=== PATIENT | female | born 1970 | race Caucasian/White ===

== ENCOUNTER → 2018-03-10 14:27 | Outpatient (CLI) | payer BC, SELFPAY ==
[2016-07-31 15:27] VITALS: BMI 34.2
--- NOTE | 2018-03-10 14:35 | RAD_ITS ---
STUDY: X-RAY - PELVIS REASON FOR EXAM: Female, 48 years old. Pelvic pain left greater than right. TECHNIQUE: One view of the pelvis was obtained. COMPARISON: None. FINDINGS: There is a non-specific bowel gas pattern. Normal visualized soft tissue structures. Normal bilateral iliac wings, sacroiliac joints and visualized sacrum. Normal visualized bilateral superior and inferior pubic rami. Normal pubic symphysis. Normal ischial tuberosities. Normal visualized right femoral head. Normal right acetabulum. Normal right hip joint. Normal visualized left femoral head. Normal left acetabulum. Normal left hip joint. RAD/Pelvis 1 or 2 Views IMPRESSION: Normal x-ray examination of the pelvis. Electronically Signed: Joe Cabrera MD at 7:33 EST , Service support ,
[2018-03-10 16:12] LABS: Absolute Lymphocyte Count 2.54 X10^3/ul (0.83-4.51); Absolute Neutrophil Count 4.8 X10^3/uL (2.0-7.7); Basophil# 0.05 X10^3/uL; Basophil% 0.6 % (0-1); Eosinophil# 0.25 X10^3/uL; Eosinophils% 3.1 % (0-5); Hematocrit 41.9 % (37-47); Hemoglobin 13.9 g/dl (12.0-15.0); Lymphocyte # 2.54 X10^3/ul (4.0); Lymphocyte % 31.1 % (19-41); Mean Corp Hgb Conc 33.2 g/gl (32-36); Mean Corpuscular Hgb 30.7 pg (27.0-32.0); Mean Corpuscular Volume 92.5 fL (81-99); Mean Platelet Vol. 10.1 fl (6.2-12.0); Monocyte# 0.54 X10^3/uL; Monocyte% 6.6 % (0-10); Neutrophil # 4.79 X10^3/uL (2.7-7.7); Neutrophil % 58.5 % (47-70); Platelet Count 346 K/mm3 (150-450); RBC Distribution Width SD 43.3 fl (35.1-43.9); Red Blood Count 4.53 M/mm3 (4.2-5.4); White Blood Count 8.2 K/mm3 (4.4-11.0)
[2018-03-10 16:16] LABS: POSITIVE COUNT NO; POSITIVE DIFFERENTIAL NO; POSITIVE MORPHOLOGY NO
[2018-03-10 16:34] LABS: ALB/GLOB Ratio 1.1 RATIO (0.9-2.4); AST(SGOT) 26 U/L (15-37); Alanine Aminotransfer ALT/SGPT 33 U/L (13-56); Albumin, Serum 4.1 g/dL (3.2-5.0); Alkaline Phosphatase 80 U/L (45-117); Anion Gap 9 (5-15); BUN 7 mg/dL (7-18); BUN/Creat Ratio 8.6 RATIO (10-20); Calcium,Total 8.7 mg/dL (8.5-10.1); Chloride 105 mmol/L (98-107); Creatinine, Serum 0.82 mg/dL (0.55-1.02); EST Glomerular Filtration Rate 80 mL/min (>60); Est Glom Filt Rate - Afr Amer 97 mL/min (>60); Globulin 3.8 g/dL (2.2-4.2); Glucose 88 mg/dL (74-106); Potassium 3.6 mmol/L (3.5-5.1); Protein, Total 7.9 g/dL (6.4-8.2); Rheumatoid Factor < 10.0 IU/mL (<15); Sodium Level 140 mmol/L (136-145)
[2018-03-13 09:43] LABS: ANTINUCLEAR ANTIBODIES DIRECT Negative (Negative)
[2018-03-17 14:44] LABS: CCP IgG Antibodies 33 units (0-19); HEPATITIS B SURFACE AG Negative (Negative); HLA B27 Negative (.); Hep B Surface Antibodies Non Reactive (.); Hep C Antibodies 0.2 s/co ratio (0.0-0.9)
--- OUTSIDE RECORDS SUMMARY | 2018-04-22 12:23 | XMS RPT_ITS ---
:1970 Author Organization OHIP Care Team Providers Name Role Phone MARIAM WATERS Attending Unavailable MARIAM WATERS Attending Unavailable MARIAM WATERS Referring Unavailable Marimar Aguirre Attending Unavailable Marimar Aguirre Referring Unavailable Mariam Waters Primary Care Unavailable PROBLEMS PROBLEMS DATE TYPE CONDITION / CODE ATTENDING STATUS SOURCE 03/10/2018 Unknown L40.59 - Other [place]anki, Marimar Active [facility] arthropathy / Hospital L40.59(ICD-10) Repository 03/10/2018 Unknown M79.7 - Vellanki, Marimar Active [facility] Fibromyalgia / Community M79.7(ICD-10) Hospital Repository 03/10/2018 Unknown L40.8 - Other Vellanki, Marimar Active [facility] psoriasis / Community L40.8(ICD-10) Hospital Repository 03/10/2018 Unknown E03.9 - Vellanki, Marimar Active [facility] Hypothyroidism, Community unspecified / Hospital E03.9(ICD-10) Repository 03/10/2018 Unknown J45.909 - Vellanki, Marimar Active [facility] Unspecified asthma, Community uncomplicated / Hospital J45.909(ICD-10) Repository 03/10/2018 Unknown K21.9 - Vellanki, Marimar Active [facility] Gastro-esophageal [facility] reflux disease Hospital without esophagitis Repository / K21.9(ICD-10) 02/05/2018 Active Pain in right elbow NA Active [facility] / M25.521(ICD-10) [facility] [place] Repository PROCEDURES PROCEDURES No Procedure Records FoundRESULTS RESULTS CBC W/DIFF, AUTOMATED Collected: 03/10/2018 Status: F Source: [place] 2:51 PM [facility] REPOSITORY TYPE CODE TESTS RESULT OUT OF RANGE REFERENCE UNITS LAB L100.1000 4.4-11.0 K/mm3 Normal WBC 8.2 LAB L100.1200 4.2-5.4 M/mm3 Normal RBC 4.53 LAB L100.1300 12.0-15.0 g/dl Normal HGB 13.9 LAB L100.1400 37-47 % Normal HCT 41.9 LAB L100.1500 81-99 fL Normal MCV 92.5 LAB L100.1600 27.0-32.0 pg Normal MCH 30.7 LAB L100.1700 32-36 g/gl Normal MCHC 33.2 LAB L100.1810 11.6-14.6 % Normal RDW CV 13.0 LAB L100.1820 35.1-43.9 fl Normal RDW SD 43.3 LAB L100.1900 150-450 K/mm3 Normal PLT 346 LAB L100.2000 6.2-12.0 fl Normal MPV 10.1 LAB L100.2100 47-70 % Normal NEUT% 58.5 LAB L100.2200 19-41 % Normal LY% 31.1 LAB L100.2300 0-10 % Normal MONO% 6.6 LAB L100.2400 0-5 % Normal EO% 3.1 LAB L100.2500 0-1 % Normal BASO% 0.6 LAB L100.2550 0.0-0.9 % Normal IM GRAN % 0.100 Result Comment: IG% - Immature Granulocytes (promyelocytes, myelocytes and metamyelocytes) > 1% indicates that a LEFT SHIFT is Present. LAB L100.2620 2.0-7.7 X10 3/uL Normal Absolute Neut 4.8 LAB L100.2720 0.83-4.51 X10 3/ul Normal Absolute Lymph 2.54 Performed By: #### L100.0100 #### [facility] [address] [place], [place], [id number] COMPREHENSIVE METABOLIC Collected: 03/10/2018 Status: F Source: [facility] 2:51 PM [facility] REPOSITORY TYPE CODE TESTS RESULT OUT OF RANGE REFERENCE UNITS LAB L501.0100 74-106 mg/dL Normal GLU 88 Result Comment: Please note revised GLUCOSE reference range effective 2017. LAB L501.1000 7-18 mg/dL Normal BUN 7 LAB L501.1100 0.55-1.02 mg/dL Normal CREAT,SERUM 0.82 Result Comment: The validity of the calculated GFR AND GFRAA in patients over 70 years has not been determined. Clinical correlation is essential. LAB L501.1110 >60 mL/min Normal EST GFR 80 Result Comment: Non- GFR Calc LAB L501.1115 >60 mL/min Normal EST GFR - AA 97 Result Comment: GFR Calc LAB L501.1300 10-20 RATIO Low BUN/CRE 8.6 LAB L501.1500 6.4-8.2 g/dL Normal T PROT 7.9 LAB L501.1800 3.2-5.0 g/dL Normal ALB 4.1 LAB L501.1950 2.2-4.2 g/dL Normal GLOB 3.8 LAB L501.2000 0.9-2.4 RATIO Normal A/G 1.1 LAB L501.2200 8.5-10.1 mg/dL Normal CA 8.7 LAB L501.4100 15-37 U/L Normal AST 26 LAB L501.4305 45-117 U/L Normal ALK P 80 LAB L501.4405 13-56 U/L Normal ALT 33 LAB L501.4600 0.20-1.00 mg/dL Normal T BILI 0.30 LAB L501.5300 136-145 mmol/L Normal NA 140 LAB L501.5600 3.5-5.1 mmol/L Normal K 3.6 LAB L501.5900 98-107 mmol/L Normal CL 105 LAB L501.6100 21.0-32.0 mmol/L Normal CO2 26.0 LAB L501.6200 5-15 Normal GAP 9 Performed By: #### L500.4050, L505.7010 #### [facility] [address] [place], [address] RHEUMATOID FACTOR Collected: 03/10/2018 Status: F Source: [place] 2:51 PM [facility] REPOSITORY TYPE CODE TESTS RESULT OUT OF RANGE REFERENCE UNITS LAB L505.7010 <15 IU/mL Normal RHEUMATOID FAC < 10.0 Performed By: #### L500.4050, L505.7010 #### [facility] [address] [place], [address] ANTINUCLEAR ANTIBODIES Collected: 03/10/2018 Status: F Source: [facility] DIRECT 2:51 PM [facility] REPOSITORY TYPE CODE TESTS RESULT OUT OF RANGE REFERENCE UNITS LAB L3100.5475 Negative Normal Negative ANALI-DIRECT Result Comment: Performed at: - [facility] [id number] Refuse Laborer: Tomer Preston PhD, Phone: [phone] Performed By: #### L3100.5475 #### [facility] (refer to report for specific site) refer to report for address and phone number HEPATITIS B SURFACE Collected: 03/10/2018 Status: F Source: [place] AG 2:51 PM [facility] REPOSITORY TYPE CODE TESTS RESULT OUT OF RANGE REFERENCE UNITS LAB L3100.0400 Negative Normal HB Negative SURF AG Result Comment: Performed at: - [facility] [id number] Refuse Laborer: Tomer Preston PhD, Phone: [phone] Performed at: - [facility] [id number] Refuse Laborer: Leopoldo To PhD, Phone: [phone] Performed at: - [facility] [id number] Refuse Laborer: Kev Will MD, Phone: [phone] Performed By: #### L3100.0390, L3100.0528, L3100.0625, L3410.1400, L4600.0100 #### [facility] (refer to report for specific site) refer to report for address and phone number HEP B SURFACE Collected: 03/10/2018 Status: F Source: [place] ANTIBODIES 2:51 PM [facility] REPOSITORY TYPE CODE TESTS RESULT OUT OF RANGE REFERENCE UNITS LAB L3100.0528 . Normal Hep B Non Reactive [place] AB Result Comment: Non Reactive: Inconsistent with immunity, less than 10 mIU/mL Reactive: Consistent with immunity, greater than 9.9 mIU/mL Performed By: #### L3100.0390, L3100.0528, L3100.0625, L3410.1400, L4600.0100 #### [facility] (refer to report for specific site) refer to report for address and phone number HEPATITIS C ANTIBODIES Collected: 03/10/2018 Status: F Source: [place] 2:51 PM [facility] REPOSITORY TYPE CODE TESTS RESULT OUT OF RANGE REFERENCE UNITS LAB L3100.0650 0.0-0.9 s/co ratio Normal HEP C AB 0.2 Result Comment: Negative: < 0.8 Indeterminate: 0.8 - 0.9 Positive: > 0.9 The CDC recommends that a positive HCV antibody result be followed up with a HCV Nucleic Acid Amplification test (177591). Performed By: #### L3100.0390, L3100.0528, L3100.0625, L3410.1400, L4600.0100 #### [facility] (refer to report for specific site) refer to report for address and phone number HLA B27 Collected: 03/10/2018 Status: F Source: [place] 2:51 PM [facility] REPOSITORY TYPE CODE TESTS RESULT OUT OF RANGE REFERENCE UNITS LAB L3410.1500 . Normal HLA Negative B27 Result Comment: HLA-B*27 Negative B27 allele interpretation for all loci based on IMGT/HLA database version 3.31.0 This test was developed and its performance characteristics determined by [facility]. It has not been cleared or approved by the Food and Drug Administration. [facility] CLIA ID Number [id number] This test was performed using PCR (Polymerase Chain Reaction)/SSOP (Sequence Specific Oligonucleotide Probes) technique. SBT (Sequence Based Typing) and/or SSP (Sequence Specific Primers) may be used as supplemental methods when necessary. Please contact [facility] Customer Service at if you have any questions. Director of [facility] Dr Leopoldo To, PhD Performed By: #### L3100.0390, L3100.0528, L3100.0625, L3410.1400, L4600.0100 #### [facility] (refer to report for specific site) refer to report for address and phone number CCP IGG ANTIBODIES Collected: 03/10/2018 Status: F Source: [place] 2:51 PM [facility] REPOSITORY TYPE CODE TESTS RESULT OUT OF REFERENCE UNITS RANGE LAB L4600.0100 0-19 units High ANTI-CCP 33 [id number] Result Comment: Negative <20 Weak positive 20 - 39 Moderate positive 40 - 59 Strong positive >59 Performed By: #### L3100.0390, L3100.0528, L3100.0625, L3410.1400, L4600.0100 #### [facility] (refer to report for specific site) refer to report for address and phone number PELVIS 1 OR 2 VIEWS Observed: 03/10/2018 Status: F Source: [place] 2:35 PM [facility] REPOSITORY [facility] Imaging Services [address] [place] [address] Pelvis 1 or 2 Views MR#: [id number] Acct: [id number] Name: NINI AMAYA Rep #: [id number] : 1970 F 48 From: Joe Cabrera PCP: Mariam Waters MD Status: REG CLI Study: Pelvis 1 or 2 Views Date of Exam: 03/10/18 Exam# [id number] Ordering Dr: Marimar Aguirre MD STUDY: X-RAY - PELVIS REASON FOR EXAM: Female, 48 years old. Pelvic pain left greater than right. TECHNIQUE: One view of the pelvis was obtained. COMPARISON: None. FINDINGS: There is a non-specific bowel gas pattern. Normal visualized soft tissue structures. Normal bilateral iliac wings, sacroiliac joints and visualized sacrum. Normal visualized bilateral superior and inferior pubic rami. Normal pubic symphysis. Normal ischial tuberosities. Normal visualized right femoral head. Normal right acetabulum. Normal right hip joint. Normal visualized left femoral head. Normal left acetabulum. Normal left hip joint. RAD/Pelvis 1 or 2 Views IMPRESSION: Normal x-ray examination of the pelvis. Electronically Signed: Joe Cabrera MD at 7:33 EST , Service support , CC: Marimar Aguirre MD; Mariam Waters MD Highway Maintenance Supervisor: Signed XR ELBOW 2V AP/LAT Observed: 02/05/2018 Status: F Source: [facility] 10:29 AM [facility] REPOSITORY * * *Final Report* * * DATE OF EXAM: Feb 05 2018 10:29AM WOX [id number] - XR ELBOW 2V AP/LAT RT / PROCEDURE REASON: Right elbow pain * * * * Physician Interpretation * * * * HISTORY: 47-year-old woman with right elbow pain RESULT: AP and lateral views of the right elbow were obtained. There is no evidence of acute displaced fracture, dislocation, or significant joint space narrowing. No joint effusion is seen. IMPRESSION: No acute findings Highway Maintenance Supervisor: PSCAlexa Transcribe Date/Time: Feb 05 2018 8:35P Dictated by : NURYS OATES MD This examination was interpreted and the report reviewed and electronically signed by: NURYS OATES MD on Feb 05 2018 8:36PM EST [id number] Observed: 02/05/2018 Status: COMPLETED Source: [place] 10:27 AM [facility] REPOSITORY HNO ID: [id number] Author: Queenie Diaz Service: (none) Author Type: (none) Type: Progress Notes Filed: 02/05/2018 10:31 AM Note Text: Radiology Service Progress Note PATIENT NAME: Nini Amaya DATE OF SERVICE: February 05, 2018 TIME: 10:27 AM PATIENT IDENTITY VERIFICATION COMPLETED USING TWO (2) METHODS: Patient confirmed name verbally and Date of . PATIENT GENDER DATA: Female. status: : No status: NO. PATIENT RELEVANT IMPLANT DATA REVIEWED: Not Applicable RADIOLOGY DEPARTMENT: General X-ray: Exam(s) Completed: Upper Extremity X-Ray(s): Elbow, right : PERIPHERAL IV DATA: Not applicable SIGNED BY: Queenie Diaz February 05, 2018 10:27 AM PROGRESS Observed: 02/05/2018 Status: COMPLETED Source: [place] 9:26 AM [facility] REPOSITORY HNO ID: [id number] Author: Mariam Waters Service: (none) Author Type: Physician Type: Progress Notes Filed: 02/05/2018 9:52 AM Note Text: Patient presents with: right arm pain: arthritis Sinus Problem HPI: Patient presents today for office visit for follow up. Nursing Notes: Radha Pillai BO 02/05/2018 9:22 AM Signed ENT: Patient complains of sinus pressure. Duration: 2 weeks Fever: Yes on and off low grade Headache: Yes. Sore throat: Yes. Ear pain: Yes. Nasal drainage: Yes. Cough: Yes. Shortness of breath: Yes. Nausea: Yes. Burning that is painful mostly in morning and evening. Vomiting: Yes. Diarrhea: Yes. Previous treatment: Yes. Sofia [place] plus. Advil sinus/cold, airbornne Arthritis pain in right arm has been flared up for 6 months. Is wanting to get back in to see Dr Aguirre instead of seeing Dr Altamirano but not getting calls back from their office thinking that needs referral from us. Wanting to maybe increase her gabapentin to 400mg? HYPOTHYROID:overdue for labs. VIT D:over due for labs. ENT: had blown out her ear drum in the past. Waking up with drainage out of the left ear since last week. Her right ear is slightly tender. GASTROENTEROLOGY issues are improving. Diarrhea seems to be improving. No bloody or black stools. RHEUM wants to get back into see Dr. Aguirre Having increased pain over right elbow. Bothers her to arm and to her hand. Using elbow brace. MEDICATIONS: Current Outpatient Prescriptions: folic acid 1 mg tablet Take 1 tablet by mouth once daily. levothyroxine (SYNTHROID) 88 mcg tablet Take 1 tablet by mouth once daily. albuterol HFA (VENTOLIN HFA) 90 mcg/actuation inhaler Inhale 2 Puffs as instructed every 4 hours as needed. meclizine (ANTIVERT) 25 mg tab TAKE 1 TABLET BY MOUTH THREE TIMES DAILY NEEDED gabapentin (NEURONTIN) 300 mg capsule TAKE 1 CAPSULE BY MOUTH AT BEDTIME ergocalciferol, vitamin D2, (DRISDOL) 50,000 unit capsule Take 1 capsule by mouth twice a week. ranitidine (ZANTAC) 150 mg tablet Take 1 tablet by mouth twice daily. mometasone (ELOCON) 0.1 % cream Apply thin layer twice a day to rash until clear or up to two weeks consecutively; 1 week off before restarting cetirizine (ZYRTEC) 10 mg tablet Take 1 tablet by mouth once daily. Ascorbic Acid (VITAMIN C) 1,000 mg tablet Take 1,000 mg by mouth once daily. albuterol (PROVENTIL) 2.5 mg /3 mL (0.083 %) nebulizer solution Use 3 mL via nebulizer three times daily as needed. OVER 5-15 MINUTES. FOR WHEEZING AND SHORTNESS OF BREATH. EPINEPHrine (EPIPEN) 0.3 mg/0.3 mL (1:1,000) atIn 0.3 mL as directed. amitriptyline (ELAVIL) 10 mg tablet Take 1 tablet by mouth at bedtime as needed. Wlgunoxekmvkvve-Qvqahaeel-LX (BROMFED DM) 2-30-10 mg/5 mL syrup Take 5 mL by mouth four times daily as needed. ibuprofen (MOTRIN) 800 mg tablet Take 1 tablet by mouth every 8 hours as needed for Pain. FOR PAIN. montelukast (SINGULAIR) 10 mg tablet Take 1 tablet by mouth daily at bedtime. (Patient not taking: Reported on 02/05/2018 ) VITAMIN B COMPLEX (B COMPLEX ORAL) Take by mouth. vitamin e 1,000 unit capsule Take 1,000 Units by mouth once daily. niacin (NIACIN) 500 mg tablet Take 500 mg by mouth daily with breakfast. Magnesium Oxide 500 mg cap Take by mouth. No current facility-administered medications for this visit. ALLERGIES: ALLERGIES Allergen Reactions - Aleve [Naproxen Sod* Hives, Swelling - Basil Swelling - Bees Hives - Trazodone Other: See Comments episodes of blindness - Amoxicillin Other: See Comments yeast infection - Morphine Vomiting - Percocet [Oxycodone* Other: See Comments Headaches, strange dreams - Prozac [Fluoxetine * - Septra [Sulfamethox* Hives PAST MEDICAL HISTORY Diagnosis Date - Allergic rhinitis, cause unspecified - Chronic depressive personality disorder - Diaphragmatic hernia without mention of obstruction or gangrene - Esophageal reflux - Esophagitis, unspecified - Hypothyroidism 08/15/2009 - Irritable bowel syndrome - LUMB DISC DIS W MYELOPAT 03/04/2007 - Lumbago 02/12/2007 - Marijuana use found on drug screen - Psoriatic arthritis (HCC) - Rheumatoid arthritis(714.0) Sees Dr. Altamirano at [facility] - Tear of medial cartilage or meniscus of knee, current 06/27/2010 - Unspecified asthma(493.90) PAST SURGICAL HISTORY Procedure Laterality Date - COLONOSCOP W/ OR W/O [facility] SPEC Colonoscopy - EGD W/O OR W/BRUSH/WASH 10/17/2005 EGD - HYSTERECTOMY HX 07/2016 with RSO - KNEE SCOPE,DIAGNOSTIC 11/07/2010 Arthroscopy, knee right - LIGATE FALLOPIAN TUBE 01/18/04 Tubal ligation - PAST SURGICAL HISTORY OF removal of sinus mass-benign FAMILY HISTORY Problem Relation Age of Onset - Diabetes Mother - Hypertension Mother - other (reflux) Mother - other (Rheumatoid Arthritis) Mother - other (Fibromyalgia) Mother - other (Osteo Arthritis) Mother - Hypertension Maternal Grandfather - other (LUPUS) Maternal Grandmother - other (LUPUS) Maternal Aunt - other (lung cancer) Maternal Aunt - other (brain cancer) Maternal Aunt Social History Marital status: Spouse name: Years of education: Number of children: 3 Occupational History Occupation Employer Comment patient ar shilpa* [employer]* Social History Main Topics Smoking status: Current Every Day Smoker Packs/day: 1.00 Years: 15.00 Types: Cigarettes Smokeless tobacco: Never Used Alcohol use: Yes Comment: RARELY Drug use: No Comment: COFFEE Sexual activity: Yes Partners with: Male control/protection: Tubal Ligation Reviewed current medications, allergies, past medical history, surgical history, family history and social history today. REVIEW OF SYSTEMS RESPIRATORY: Negative for cough, hemoptysis, wheezing, COPD, dyspnea or shortness of breath CARDIOVASCULAR: Negative for chest pain, leg swelling, hypertension, CHF or palpitations All other reviewed and negative other than HPI. HEALTH MAINTENANCE: Reviewed health maintenance issues today and recommended the following in detail. MAMMOGRAM due on 02/28/2017 PAP EVERY 5 YEARS -non cancerous fibroids INFLUENZA-recommended. VITALS: BP 122/64 Pulse 88 Temp 36.9 ?C (98.4 ?F) (Tympanic) Wt 90.7 kg (200 lb) LMP 05/21/2016 BMI 34.87 kg/m? Last 4 Encounter Wt Readings: Date: Wt: 02/05/2018 90.7 kg (200 lb) 05/29/2017 91.2 kg (201 lb) 05/24/2017 91.2 kg (201 lb) 08/13/2016 90.8 kg (200 lb 3.2 oz) PHYSICAL EXAMINATION: General appearance: Well appearing, alert, in no acute distress, well-hydrated, well nourished. Skin: Skin color, texture, turgor normal, no suspicious rashes or lesions Head: Normocephalic, no masses, lesions, tenderness or abnormalities Eyes: Anicteric sclera. Pupils are equally round and reactive to light. Extraocular movements are intact. Ears: left ear showed red ear canal. Tm is clear. Nose/Sinuses: Nares normal, septum midline, mucosa normal, no drainage or sinus tenderness Oropharynx: Lips, mucosa, and tongue normal, teeth and gums normal, oropharynx normal Neck: Supple, no adenopathy; thyroid symmetric, normal size, no bruits Lungs: Lungs clear to auscultation. No wheezing, rhonchi, rales Heart: RRR without murmur, gallop, or rubs. No ectopy Abdomen: Normal abdominal exam, Abdomen soft, non-tender. Bowel sounds normal. No masses, organomegaly Extremities: No deformities, edema, skin discoloration, clubbing or cyanosis. Good capillary refill. Tender over left elbow and lateral epicondyle. No redness or warmth. No edema. ASSESSMENT/PLAN: 1. Psoriatic arthritis (HCC) - ICD9: 696.0, ICD10: L40.50 (primary diagnosis) - see rheum. Check labs. - CONSULT TO RHEUM/IMMUN DISEASE - SED MARCELO BERNAL - C-REACTIVE PROTEIN (CRP) - GABAPENTIN 400 MG CAPSULE 2. Impaired fasting glucose - ICD9: 790.21, ICD10: R73.01 - follow labs. - COMP METABOLIC PANEL - LIPID PANEL BASIC - HGB A1C 3. Acquired hypothyroidism - ICD9: 244.9, ICD10: E03.9 - Instructed patient on importance of taking on an empty stomach either first thing in the morning or at bedtime. - TSH BLD 4. Vitamin D deficiency - ICD9: 268.9, ICD10: E55.9 - check albs. - VITAMIN D 25 HYDROXY 5. Uncomplicated asthma, unspecified asthma severity, unspecified whether persistent - ICD9: 493.90, ICD10: J45.909 - follow labs 6. Visit for screening mammogram - ICD9: V76.12, ICD10: Z12.31 - Encouraged monthly BSE - Follow up for annual exam in one year. - FRANCISCO JAVIER SCREENING 7. Tobacco abuse - ICD9: 305.1, ICD10: Z72.0 - Cessation encouraged. - Physiologic and physical aspects of tobacco addiction as well as strategies for quitting were discussed. - Counseling was given focusing on the harmful effects of this addiction especially given the patient's medical condition(s) which will be worsened because of the chemicals in tobacco. 8. Right elbow pain - ICD9: 719.42, ICD10: M25.521 - ice prn - XR ELBOW GENERAL 2V AP/LAT RT 9. Bacterial sinusitis - ICD9: 473.9, 041.9, ICD10: J32.9, B96.89 - Supportive care with plenty of fluids, rest, and analgesia prn. - Follow up in one week if symptoms persist or worsen. - DOXYCYCLINE MONOHYDRATE 100 MG CAPSULE 10. Acute otitis externa of left ear, unspecified type - ICD9: 380.10, ICD10: H60.502 - Call if symptoms worsen at all or if not better in one to two weeks - UMACHCAF-XDDMILCSB-EWNBWEULY 3.5 MG-10,000 UNIT/ML-1 % EAR DROPS,SUSP Mariam Waters MD CNOV Observed: 02/05/2018 Status: COMPLETED Source: [place] 9:00 AM [facility] REPOSITORY Office Visit (FAMPWS) NINI AMAYA ([id number]) 1970 F Date Time Provider Department 02/05/18 9:00 AM [facility] your visit today, we recorded the following information about you: Temperature Pulse Blood pressure Weight 98.4 degrees 88/minute 122/64 90.7 kg Radhacarol Serranonidhichicho BO 02/05/2018 9:22 AM Signed ENT: Patient complains of sinus pressure. Duration: 2 weeks Fever: Yes on and off low grade Headache: Yes. Sore throat: Yes. Ear pain: Yes. Nasal drainage: Yes. Cough: Yes. Shortness of breath: Yes. Nausea: Yes. Burning that is painful mostly in morning and evening. Vomiting: Yes. Diarrhea: Yes. Previous treatment: Yes. Sofia [place] plus. Advil sinus/cold, airbornne Arthritis pain in right arm has been flared up for 6 months. Is wanting to get back in to see Dr Aguirre instead of seeing Dr Altamirano but not getting calls back from their office thinking that needs referral from us. Wanting to maybe increase her gabapentin to 400mg? Mariam Waters MD 02/05/2018 9:52 AM Signed Patient presents with: right arm pain: arthritis Sinus Problem HPI: Patient presents today for office visit for follow up. Nursing Notes: Radha Pillai BO 02/05/2018 9:22 AM Signed ENT: Patient complains of sinus pressure. Duration: 2 weeks Fever: Yes on and off low grade Headache: Yes. Sore throat: Yes. Ear pain: Yes. Nasal drainage: Yes. Cough: Yes. Shortness of breath: Yes. Nausea: Yes. Burning that is painful mostly in morning and evening. Vomiting: Yes. Diarrhea: Yes. Previous treatment: Yes. Sofia [place] plus. Advil sinus/cold, airbornne Arthritis pain in right arm has been flared up for 6 months. Is wanting to get back in to see Dr Aguirre instead of seeing Dr Altamirano but not getting calls back from their office thinking that needs referral from us. Wanting to maybe increase her gabapentin to 400mg? HYPOTHYROID:overdue for labs. VIT D:over due for labs. ENT: had blown out her ear drum in the past. Waking up with drainage out of the left ear since last week. Her right ear is slightly tender. GASTROENTEROLOGY issues are improving. Diarrhea seems to be improving. No bloody or black stools. RHEUM wants to get back into see Dr. Aguirre Having increased pain over right elbow. Bothers her to arm and to her hand. Using elbow brace. MEDICATIONS: Current Outpatient Prescriptions: folic acid 1 mg tablet Take 1 tablet by mouth once daily. levothyroxine (SYNTHROID) 88 mcg tablet Take 1 tablet by mouth once daily. albuterol HFA (VENTOLIN HFA) 90 mcg/actuation inhaler Inhale 2 Puffs as instructed every 4 hours as needed. meclizine (ANTIVERT) 25 mg tab TAKE 1 TABLET BY MOUTH THREE TIMES DAILY NEEDED gabapentin (NEURONTIN) 300 mg capsule TAKE 1 CAPSULE BY MOUTH AT BEDTIME ergocalciferol, vitamin D2, (DRISDOL) 50,000 unit capsule Take 1 capsule by mouth twice a week. ranitidine (ZANTAC) 150 mg tablet Take 1 tablet by mouth twice daily. mometasone (ELOCON) 0.1 % cream Apply thin layer twice a day to rash until clear or up to two weeks consecutively; 1 week off before restarting cetirizine (ZYRTEC) 10 mg tablet Take 1 tablet by mouth once daily. Ascorbic Acid (VITAMIN C) 1,000 mg tablet Take 1,000 mg by mouth once daily. albuterol (PROVENTIL) 2.5 mg /3 mL (0.083 %) nebulizer solution Use 3 mL via nebulizer three times daily as needed. OVER 5-15 MINUTES. FOR WHEEZING AND SHORTNESS OF BREATH. EPINEPHrine (EPIPEN) 0.3 mg/0.3 mL (1:1,000) atIn 0.3 mL as directed. amitriptyline (ELAVIL) 10 mg tablet Take 1 tablet by mouth at bedtime as needed. Iutlojxtqwuavah-Kbbvijzdi-IG (BROMFED DM) 2-30-10 mg/5 mL syrup Take 5 mL by mouth four times daily as needed. ibuprofen (MOTRIN) 800 mg tablet Take 1 tablet by mouth every 8 hours as needed for Pain. FOR PAIN. montelukast (SINGULAIR) 10 mg tablet Take 1 tablet by mouth daily at bedtime. (Patient not taking: Reported on 02/05/2018 ) VITAMIN B COMPLEX (B COMPLEX ORAL) Take by mouth. vitamin e 1,000 unit capsule Take 1,000 Units by mouth once daily. niacin (NIACIN) 500 mg tablet Take 500 mg by mouth daily with breakfast. Magnesium Oxide 500 mg cap Take by mouth. No current facility-administered medications for this visit. ALLERGIES: ALLERGIES Allergen Reactions - Aleve [Naproxen Sod* Hives, Swelling - Basil Swelling - Bees Hives - Trazodone Other: See Comments episodes of blindness - Amoxicillin Other: See Comments yeast infection - Morphine Vomiting - Percocet [Oxycodone* Other: See Comments Headaches, strange dreams - Prozac [Fluoxetine * - Septra [Sulfamethox* Hives PAST MEDICAL HISTORY Diagnosis Date - Allergic rhinitis, cause unspecified - Chronic depressive personality disorder - Diaphragmatic hernia without mention of obstruction or gangrene - Esophageal reflux - Esophagitis, unspecified - Hypothyroidism 08/15/2009 - Irritable bowel syndrome - LUMB DISC DIS W MYELOPAT 03/04/2007 - Lumbago 02/12/2007 - Marijuana use found on drug screen - Psoriatic arthritis (HCC) - Rheumatoid arthritis(714.0) Sees Dr. Altamirano at [facility] - Tear of medial cartilage or meniscus of knee, current 06/27/2010 - Unspecified asthma(493.90) PAST SURGICAL HISTORY Procedure Laterality Date - COLONOSCOP W/ OR W/O [facility] SPEC Colonoscopy - EGD W/O OR W/BRUSH/WASH 10/17/2005 EGD - HYSTERECTOMY HX 07/2016 with RSO - KNEE SCOPE,DIAGNOSTIC 11/07/2010 Arthroscopy, knee right - LIGATE FALLOPIAN TUBE 01/18/04 Tubal ligation - PAST SURGICAL HISTORY OF removal of sinus mass-benign FAMILY HISTORY Problem Relation Age of Onset - Diabetes Mother - Hypertension Mother - other (reflux) Mother - other (Rheumatoid Arthritis) Mother - other (Fibromyalgia) Mother - other (Osteo Arthritis) Mother - Hypertension Maternal Grandfather - other (LUPUS) Maternal Grandmother - other (LUPUS) Maternal Aunt - other (lung cancer) Maternal Aunt - other (brain cancer) Maternal Aunt Social History Marital status: Spouse name: Years of education: Number of children: 3 Occupational History 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 REVIEW OF SYSTEMS RESPIRATORY: Negative for cough, hemoptysis, wheezing, COPD, dyspnea or shortness of breath CARDIOVASCULAR: Negative for chest pain, leg swelling, hypertension, CHF or palpitations All other reviewed and negative other than HPI. HEALTH MAINTENANCE: Reviewed health maintenance issues today and recommended the following in detail. MAMMOGRAM due on 02/28/2017 PAP EVERY 5 YEARS -non cancerous fibroids INFLUENZA-recommended. VITALS: BP 122/64 Pulse 88 Temp 36.9 ?C (98.4 ?F) (Tympanic) Wt 90.7 kg (200 lb) LMP 05/21/2016 BMI 34.87 kg/m? Last 4 Encounter Wt Readings: Date: Wt: 02/05/2018 90.7 kg (200 lb) 05/29/2017 91.2 kg (201 lb) 05/24/2017 91.2 kg (201 lb) 08/13/2016 90.8 kg (200 lb 3.2 oz) PHYSICAL EXAMINATION: General appearance: Well appearing, alert, in no acute distress, well-hydrated, well nourished. Skin: Skin color, texture, turgor normal, no suspicious rashes or lesions Head: Normocephalic, no masses, lesions, tenderness or abnormalities Eyes: Anicteric sclera. Pupils are equally round and reactive to light. Extraocular movements are intact. Ears: left ear showed red ear canal. Tm is clear. Nose/Sinuses: Nares normal, septum midline, mucosa normal, no drainage or sinus tenderness Oropharynx: Lips, mucosa, and tongue normal, teeth and gums normal, oropharynx normal Neck: Supple, no adenopathy; thyroid symmetric, normal size, no bruits Lungs: Lungs clear to auscultation. No wheezing, rhonchi, rales Heart: RRR without murmur, gallop, or rubs. No ectopy Abdomen: Normal abdominal exam, Abdomen soft, non-tender. Bowel sounds normal. No masses, organomegaly Extremities: No deformities, edema, skin discoloration, clubbing or cyanosis. Good capillary refill. Tender over left elbow and lateral epicondyle. No redness or warmth. No edema. ASSESSMENT/PLAN: 1. Psoriatic arthritis (HCC) - ICD9: 696.0, ICD10: L40.50 (primary diagnosis) - see rheum. Check labs. - CONSULT TO RHEUM/IMMUN DISEASE - SED RATE WESTERGREN - C-REACTIVE PROTEIN (CRP) - GABAPENTIN 400 MG CAPSULE 2. Impaired fasting glucose - ICD9: 790.21, ICD10: R73.01 - follow labs. - COMP METABOLIC PANEL - LIPID PANEL BASIC - HGB A1C 3. Acquired hypothyroidism - ICD9: 244.9, ICD10: E03.9 - Instructed patient on importance of taking on an empty stomach either first thing in the morning or at bedtime. - TSH BLD 4. Vitamin D deficiency - ICD9: 268.9, ICD10: E55.9 - check albs. - VITAMIN D 25 HYDROXY 5. Uncomplicated asthma, unspecified asthma severity, unspecified whether persistent - ICD9: 493.90, ICD10: J45.909 - follow labs 6. Visit for screening mammogram - ICD9: V76.12, ICD10: Z12.31 - Encouraged monthly BSE - Follow up for annual exam in one year. - FRANCISCO JAVIER SCREENING 7. Tobacco abuse - ICD9: 305.1, ICD10: Z72.0 - Cessation encouraged. - Physiologic and physical aspects of tobacco addiction as well as strategies for quitting were discussed. - Counseling was given focusing on the harmful effects of this addiction especially given the patient's medical condition(s) which will be worsened because of the chemicals in tobacco. 8. Right elbow pain - ICD9: 719.42, ICD10: M25.521 - ice prn - XR ELBOW GENERAL 2V AP/LAT RT 9. Bacterial sinusitis - ICD9: 473.9, 041.9, ICD10: J32.9, B96.89 - Supportive care with plenty of fluids, rest, and analgesia prn. - Follow up in one week if symptoms persist or worsen. - DOXYCYCLINE MONOHYDRATE 100 MG CAPSULE 10. Acute otitis externa of left ear, unspecified type - ICD9: 380.10, ICD10: H60.502 - Call if symptoms worsen at all or if not better in one to two weeks - HGFLZKBX-YZWSACBEB-DOECOLMPV 3.5 MG-10,000 UNIT/ML-1 % EAR DROPS,SUSP Mariam Waters MD Referring Provider: SELF [200] Allergies As of Date: 02/05/2018 Noted Allergy Reaction ALEVE (NAPROXEN SODIUM) 11/01/2008 4 - Hives 7 - Swelling BASIL 12/21/2008 7 - Swelling BEES 01/31/2005 4 - Hives TRAZODONE 01/31/2005 14 - Other: See Comments Comments: episodes of blindness AMOXICILLIN 01/31/2005 14 - Other: See Comments Comments: yeast infection MORPHINE 11/07/2010 11 - Vomiting PERCOCET (OXYCODONE-ACETAMINOPHEN)02/01/2014 14 - Other: See Comments Comments: Headaches, strange dreams PROZAC (FLUOXETINE HCL) 01/31/2005 SEPTRA (SULFAMETHOXAZOLE-TRIMETHO*01/31/2005 4 - Hives Date Reviewed: 05/29/2017 Reviewed by: Hortencia Du LPN - Fully Assessed Reason for Visit: right arm pain [Other] Cmt: arthritis Sinus Problem [99] Reason For Visit History Recorded Primary Visit Diagnosis:Psoriatic arthritis (HCC) [L40.50] Other Visit Diagnoses:Impaired fasting glucose [R73.01] Acquired hypothyroidism [E03.9] Vitamin D deficiency [E55.9] Uncomplicated asthma, unspecified asthma severity, unspecified whether persistent [J45.909] Visit for screening mammogram [Z12.31] Tobacco abuse [Z72.0] Right elbow pain [M25.521] Bacterial sinusitis [J32.9, B96.89] Acute otitis externa of left ear, unspecified type [H60.502] Order(s):CONSULT TO RHEUM/IMMUN DISEASE [9039] Order #: [id number]: 1 COMP METABOLIC PANEL [SQCMP] Order #: [id number] FUTURE LIPID PANEL BASIC [SQLIPB] Order #: [id number] FUTURE TSH BLD [SQTSH] Order #: [id number] FUTURE HGB A1C [ZNYSR8E] Order #: [id number] FUTURE SED RATE WESTERGREN [SQWSR] Order #: [id number] FUTURE C-REACTIVE PROTEIN (CRP) [SQCRP] Order #: [id number] FUTURE VITAMIN D 25 HYDROXY [SQVITD] Order #: [id number] FUTURE FRANCISCO JAVIER SCREENING [[id number]] Order #: [id number] FUTURE gabapentin (NEURONTIN) 400 mg capsuleTake 1 capsule by mouth daily at bedtime for 30 days.Disp: 30 capsuleRfl: 2 XR ELBOW GENERAL 2V AP/LAT RT [[id number]] Order #: [id number] FUTURE pfbxdoje-nsewavczo-xdquwqmtrcmiqa (CORTISPORIN) 3.5-10,000-1 mg/mL-unit/mL-% otic suspensionUse 3 Drops in the left ear four times daily.Disp: 10 mLRfl: 0 doxycycline monohydrate (MONODOX) 100 mg capsuleTake 1 capsule by mouth twice daily.Disp: 20 capsuleRfl: 0 Prescriptions as of 02/05/2018 Sig: GABAPENTIN 400 MG CAPSULE Take 1 capsule by mouth daily* FOLIC ACID 1 MG TABLET Take 1 tablet by mouth once d* LEVOTHYROXINE 88 MCG TABLET Take 1 tablet by mouth once d* ALBUTEROL SULFATE HFA 90 MCG/* Inhale 2 Puffs as instructed * MECLIZINE 25 MG TABLET TAKE 1 TABLET BY MOUTH THREE * ERGOCALCIFEROL (VITAMIN D2) 5* Take 1 capsule by mouth twice* RANITIDINE 150 MG TABLET Take 1 tablet by mouth twice * MOMETASONE 0.1 % TOPICAL CREAM Apply thin layer twice a day * CETIRIZINE 10 MG TABLET Take 1 tablet by mouth once d* ASCORBIC ACID (VITAMIN C) 1,0* Take 1,000 mg by mouth once d* ALBUTEROL SULFATE 2.5 MG/3 ML* Use 3 mL via nebulizer three * EPINEPHRINE 0.3 MG/0.3 ML INJ* 0.3 mL as directed. ZTWKXEHF-REOJNBCQR-FVYLPBUBB * Use 3 Drops in the left ear f* DOXYCYCLINE MONOHYDRATE 100 M* Take 1 capsule by mouth twice* AMITRIPTYLINE 10 MG TABLET Take 1 tablet by mouth at bed* BROMPHENIRAMINE-PSEUDOEPHEDRI* Take 5 mL by mouth four times* IBUPROFEN 800 MG TABLET Take 1 tablet by mouth every * MONTELUKAST 10 MG TABLET Take 1 tablet by mouth daily * Patient not taking: Reported on 02/05/2018 B COMPLEX ORAL Take by mouth. VITAMIN E 1,000 UNIT CAPSULE Take 1,000 Units by mouth onc* NIACIN 500 MG TABLET Take 500 mg by mouth daily wi* MAGNESIUM OXIDE 500 MG CAPSULE Take by mouth. Problem List As Of Date 02/05/2018 Noted Resolved Chronic depressive personality disorder [F34.1] Allergic rhinitis, cause unspecified [J30.9] Irritable bowel syndrome [K58.9] Esophageal reflux [K21.9] Asthma [J45.909] Esophagitis, unspecified [K20.9] INVALID FOR* Diaphragmatic hernia without mention of obstruc*INVALID FOR* Lumbago [M54.5] INVALID FOR* Intervertebral lumbar disc disorder with myelop*INVALID FOR* Cough [R05] INVALID FOR* Hypothyroidism [E03.9] INVALID FOR* Impaired fasting glucose [R73.01] INVALID FOR* Vitamin D deficiency [E55.9] INVALID FOR* Routine general medical examination at a [facility]*INVALID FOR*11/30/2011 Class: Chronic More... Routine gynecological examination [Z01.419] INVALID FOR*11/30/2011 Class: Chronic Tear of medial cartilage or meniscus of knee, c*INVALID FOR*12/19/2010 Psoriatic arthritis [L40.50] INVALID FOR* Visit Notes: >> Radha Pillai LPN SatFeb 05, 2018 9:17 AM Status: Signed ENT: Patient complains of sinus pressure. Duration: 2 weeks Fever: Yes on and off low grade Headache: Yes. Sore throat: Yes. Ear pain: Yes. Nasal drainage: Yes. Cough: Yes. Shortness of breath: Yes. Nausea: Yes. Burning that is painful mostly in morning and evening. Vomiting: Yes. Diarrhea: Yes. Previous treatment: Yes. Sofia [place] plus. Advil sinus/cold, airbornne Arthritis pain in right arm has been flared up for 6 months. Is wanting to get back in to see Dr Aguirre instead of seeing Dr Altamirano but not getting calls back from their office thinking that needs referral from us. Wanting to maybe increase her gabapentin to 400mg? Prescriptions ordered this encounter Disp Refills Start End GABAPENTIN 400 MG CAPSULE 30 c* 2 02/05/2018 03/07/2018 Route: ORAL Sig: Take 1 capsule by mouth daily at bedtime for 30 days. MBGQXZOV-RKLURPYCU-NYOTASXXQ 3.5 MG-* 10 mL 0 02/05/2018 Route: LEFT EAR Sig: Use 3 Drops in the left ear four times daily. DOXYCYCLINE MONOHYDRATE 100 MG CAPSU* 20 c* 0 02/05/2018 Route: ORAL Sig: Take 1 capsule by mouth twice daily. Medications Discontinued During This Encounter cefprozil (CEFZIL) 500 mg tablet 14 t* 0 05/29/2017 02/05/2018 Route: ORAL Sig: Take 1 tablet by mouth twice daily. Disc: Course of therapy completed gabapentin (NEURONTIN) 300 mg capsule 30 c* 1 08/26/2017 02/05/2018 Cmt: Med-sync patient. If too soon, we will put new RX on hold for next cycle. Sig: TAKE 1 CAPSULE BY MOUTH AT BEDTIME Disc: Reason for discontinue is not on file. Disposition: Return in about 6 months (around 08/06/2018). Follow-up and Disposition History Recorded Encounter Status:Closed by MARIAM WATERS MD on 02/05/18 PROGRESS Observed: 05/29/2017 Status: COMPLETED Source: [place] 1:58 PM [facility] REPOSITORY HNO ID: [id number] Author: Jacquie Hughes (Pa-C) Eliazar Service: (none) Author Type: Physician Garment Supervisor Type: Progress Notes Filed: 05/29/2017 2:10 PM Note Text: 47 year old female with c/o persistent cough and congestion over last 2 months on and off. Started on Z-pack and steroid through urgent care 05/24/17. Feels even worse. Now has a whistle in left ear. Stuffy. Coughing profusely. No fever. Tmax 100.9 yesterday afternoon. Chew [place]. Trying to quit smoking. HISTORIES FAMILY HISTORY Problem Relation Age of Onset - Diabetes Mother - Hypertension Mother - reflux [OTHER] Mother - Rheumatoid Arthritis [OTHER] Mother - Fibromyalgia [OTHER] Mother - Osteo Arthritis [OTHER] Mother - Hypertension Maternal Grandfather - LUPUS [OTHER] Maternal Grandmother - LUPUS [OTHER] Maternal Aunt - lung cancer [OTHER] Maternal Aunt - brain cancer [OTHER] Maternal Aunt PAST MEDICAL HISTORY Diagnosis Date - Allergic rhinitis, cause unspecified - Chronic depressive personality disorder - Diaphragmatic hernia without mention of obstruction or gangrene - Esophageal reflux - Esophagitis, unspecified - Hypothyroidism 08/15/2009 - Irritable bowel syndrome - LUMB DISC DIS W MYELOPAT 03/04/2007 - Lumbago 02/12/2007 - Marijuana use found on drug screen - Psoriatic arthritis (HCC) - Rheumatoid arthritis(714.0) Sees Dr. Altamirano at [facility] - Tear of medial cartilage or meniscus of knee, current 06/27/2010 - Unspecified asthma(493.90) PAST SURGICAL HISTORY Procedure Laterality Date - [facility] Colonoscopy - EGD W/O OR W/BRUSH/WASH 10/17/2005 EGD - HYSTERECTOMY HX 07/2016 with RSO - KNEE SCOPE,DIAGNOSTIC 11/07/2010 Arthroscopy, knee right - LIGATE FALLOPIAN TUBE 01/18/04 Tubal ligation - PAST SURGICAL HISTORY OF removal of sinus mass-benign Social History Marital status: Spouse name: Years of education: Number of children: 3 Occupational History 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 [employer]* [employer]* Social History Main Topics Smoking status: Current Every Day Smoker Packs/day: 0.50 Years: 15.00 Types: Cigarettes Last attempt to quit: 04/15/2015 Smokeless status: Never Used Alcohol use: Yes Comment: RARELY Drug use: No Comment: COFFEE Sexual activity: Yes Partners with: Male control/protection: Tubal Ligation ACTIVE PROBLEM LIST Chronic Depressive Personality Disorder Allergic Rhinitis, Cause Unspecified Irritable Bowel Syndrome Esophageal Reflux Asthma Esophagitis, Unspecified Diaphragmatic Hernia Without Mention of Obstruction Or Gangrene Lumbago Intervertebral Lumbar Disc Disorder With Myelopathy, Lumbar Region Cough Hypothyroidism Impaired Fasting Glucose Vitamin D Deficiency Psoriatic Arthritis (Hcc) Current Outpatient Prescriptions: levothyroxine (SYNTHROID) 88 mcg tablet TAKE 1 TABLET BY MOUTH EVERY DAY on an empty stomach Disp: 30 tablet Rfl: 0 meclizine (ANTIVERT) 25 mg tab TAKE 1 TABLET BY MOUTH THREE TIMES DAILY NEEDED Disp: 30 tablet Rfl: 0 gabapentin (NEURONTIN) 300 mg capsule TAKE 1 CAPSULE BY MOUTH AT BEDTIME Disp: 30 capsule Rfl: 0 mupirocin (BACTROBAN) 2 % ointment Apply 1 application to affected area twice daily for 10 days. Disp: 30 g Rfl: 0 cetirizine (ZYRTEC) 10 mg tablet Take 1 tablet by mouth once daily. Disp: 90 tablet Rfl: 1 amitriptyline (ELAVIL) 10 mg tablet Take 1 tablet by mouth at bedtime as needed. Disp: 30 tablet Rfl: 5 folic acid 1 mg tablet Take 1 tablet by mouth once daily. Disp: 30 tablet Rfl: 11 VENTOLIN HFA 90 mcg/actuation inhaler Inhale 2 Puffs as instructed every 4 hours as needed. Disp: 1 Inhaler Rfl: 11 mometasone (ELOCON) 0.1 % cream Apply thin layer twice a day to rash until clear or up to two weeks consecutively; 1 week off before restarting Disp: 45 g Rfl: 11 VITAMIN D 50,000 unit capsule Take 1 capsule by mouth twice a week. Disp: 8 capsule Rfl: 11 ranitidine (ZANTAC) 150 mg tablet Take 1 tablet by mouth twice daily. Disp: 60 tablet Rfl: 11 ibuprofen (MOTRIN) 800 mg tablet Take 1 tablet by mouth every 8 hours as needed for Pain. FOR PAIN. Disp: 40 tablet Rfl: 0 montelukast (SINGULAIR) 10 mg tablet Take 1 tablet by mouth daily at bedtime. Disp: 30 tablet Rfl: 12 VITAMIN B COMPLEX (B COMPLEX ORAL) Take by mouth. Disp: Rfl: Ascorbic Acid (VITAMIN C) 1,000 mg tablet Take 1,000 mg by mouth once daily. Disp: Rfl: vitamin e 1,000 unit capsule Take 1,000 Units by mouth once daily. Disp: Rfl: niacin (NIACIN) 500 mg tablet Take 500 mg by mouth daily with breakfast. Disp: Rfl: Magnesium Oxide 500 mg cap Take by mouth. Disp: Rfl: albuterol (PROVENTIL) 2.5 mg /3 mL (0.083 %) nebulizer solution Use 3 mL via nebulizer three times daily as needed. OVER 5-15 MINUTES. FOR WHEEZING AND SHORTNESS OF BREATH. Disp: 90 mL Rfl: 1 EPINEPHrine (EPIPEN) 0.3 mg/0.3 mL (1:1,000) atIn 0.3 mL as directed. Disp: 1 Each Rfl: 0 No current facility-administered medications for this visit. INFLUENZA(1) due on 12/14/2016 MAMMOGRAM due on 02/28/2017 PAP EVERY 5 YEARS due on 04/22/2017 HPV EVERY 5 YEARS due on 04/22/2017 EXAM: OBJECTIVE: BP 100/78 Pulse 80 Temp 36.9 ?C (98.4 ?F) (Tympanic) Resp 20 Wt 91.2 kg (201 lb) LMP 05/21/2016 SpO2 97% BMI 35.05 kg/m2 General appearance: Pleasant obese adult woman in no acute distress. Harsh frequent cough. Respirations: regular, unlabored Color: pink to lips and nailbeds, normal turgor Skin: warm, dry, no unusual rashes or lesions Head: Normocephalic Eyes: sclerae and conjunctivae without injection or exudate, PERRLA, EOMI, corneal light reflex symmetric bilaterally Ears: left TM retracted, rizo opaque with p;inpoint perforation. Right TM clear/ rizo with normal landmarks, no swelling or deformity ear canal or external ear Nose/Sinuses: Nose patent. Moderate red turbinate swelling. Active exudate: none. Maxillary and frontal sinuses nontender to percussion. Oropharynx: oral membranes are moist. Lips, mucosa, and tongue free from lesions. Gums without inflammation. Posterior pharynx right side erythema with focal swelling, no posterioe injection, exudate, tonsillar hypertrophy. Neck: Neck supple, 1/4+ bilateral subtonsillar nodes, painful on left, no right. No other lymphadenopathy; thyroid without mass or tenderness. Chest: normally shaped, equal expansion with breaths. Lungs: Lungs clear to auscultation and percussion. No crackles or wheezes. Heart: RRR without murmur, gallop, or rubs. S1 and S2 normal. ASSESSMENT/PLAN: 1. Visit for screening mammogram - ICD9: V76.12, ICD10: Z12.31 (primary diagnosis) - Encouraged monthly BSE - Follow up for annual exam in one year. - FRANCISCO JAVIER SCREENING 2. Acute upper respiratory infection - ICD9: 465.9, ICD10: J06.9 - Discussed viral etiology and rationale for treatment. - Symptomatic treatment with prn analgesia - Supportive care with fluids and rest 3. Acute otitis media of left ear with perforation - ICD9: 382.01, ICD10: H66.92, H72.92 - Will begin treatment with Ceftin 500 mg BID 7 days 4. Acute pharyngitis, unspecified etiology - ICD9: 462, ICD10: J02.9 Concerning for early abscess: Kirillin M Saul Perea PA-C PROGRESS Observed: 05/24/2017 Status: COMPLETED Source: [place] 1:24 PM [facility] REPOSITORY HNO ID: [id number] Author: Poonam Moy Service: (none) Author Type: Nurse Practitioner Type: Progress Notes Filed: 05/24/2017 1:59 PM Note Text: DON Nini Amaya is a 47 year old female who presents with ear pain and sinus drainage and cough for the past 2 months. She has some sores in her nose. She has taken multiple OTC remedies without relief. Review of Systems Constitutional: Negative. Negative for chills and fever. HENT: Positive for congestion, ear pain (bilateral) and sore throat (at night). Respiratory: Positive for cough and sputum production (orange sputum). Cardiovascular: Negative. Gastrointestinal: Negative. Negative for abdominal pain, diarrhea, nausea and vomiting. Musculoskeletal: Negative. Negative for myalgias. Skin: Negative. Negative for rash. BP 112/76 Pulse 100 Temp 36.8 ?C (98.3 ?F) (Tympanic) Resp 18 Wt 91.2 kg (201 lb) LMP 05/21/2016 BMI 35.05 kg/m2 PAST MEDICAL HISTORY Diagnosis Date - Allergic rhinitis, cause unspecified - Chronic depressive personality disorder - Diaphragmatic hernia without mention of obstruction or gangrene - Esophageal reflux - Esophagitis, unspecified - Hypothyroidism 08/15/2009 - Irritable bowel syndrome - LUMB DISC DIS W MYELOPAT 03/04/2007 - Lumbago 02/12/2007 - Marijuana use found on drug screen - Psoriatic arthritis (HCC) - Rheumatoid arthritis(714.0) Sees Dr. Altamirano at [facility] - Tear of medial cartilage or meniscus of knee, current 06/27/2010 - Unspecified asthma(493.90) PAST SURGICAL HISTORY Procedure Laterality Date - COLONOSCOP W/ OR W/O [facility] SPEC Colonoscopy - EGD W/O OR W/BRUSH/WASH 10/17/2005 EGD - HYSTERECTOMY HX 07/2016 with RSO - KNEE SCOPE,DIAGNOSTIC 11/07/2010 Arthroscopy, knee right - LIGATE FALLOPIAN TUBE 01/18/04 Tubal ligation - PAST SURGICAL HISTORY OF removal of sinus mass-benign ALLERGIES Aleve [Naproxen Sodium]; Basil; Bees; Trazodone; Amoxicillin; Morphine; Percocet [Oxycodone-Acetaminophen]; Prozac [Fluoxetine Hcl]; Septra [Sulfamethoxazole-Trimethoprim] MEDICATIONS gabapentin (NEURONTIN) 300 mg capsule TAKE 1 CAPSULE AT BEDTIME levothyroxine (SYNTHROID) 88 mcg tablet take 1 tablet daily on an empty stomach cetirizine (ZYRTEC) 10 mg tablet Take 1 tablet by mouth once daily. amitriptyline (ELAVIL) 10 mg tablet Take 1 tablet by mouth at bedtime as needed. meclizine (ANTIVERT) 25 mg tab TAKE 1 TABLET BY MOUTH THREE TIMES DAILY NEEDED folic acid 1 mg tablet Take 1 tablet by mouth once daily. VENTOLIN HFA 90 mcg/actuation inhaler Inhale 2 Puffs as instructed every 4 hours as needed. mometasone (ELOCON) 0.1 % cream Apply thin layer twice a day to rash until clear or up to two weeks consecutively; 1 week off before restarting VITAMIN D 50,000 unit capsule Take 1 capsule by mouth twice a week. ranitidine (ZANTAC) 150 mg tablet Take 1 tablet by mouth twice daily. ibuprofen (MOTRIN) 800 mg tablet Take 1 tablet by mouth every 8 hours as needed for Pain. FOR PAIN. HYDROcodone-acetaminophen (NORCO) 5-325 mg per tablet Take 1 tablet by mouth every 6 hours as needed. doxycycline monohydrate 100 mg tablet Take 1 tablet by mouth twice daily. HYDROcodone-acetaminophen (NORCO) 5-325 mg per tablet Take 1 tablet by mouth every 6 hours as needed for Pain. ibuprofen (MOTRIN) 800 mg tablet Take 1 tablet by mouth every 8 hours as needed for Pain. FOR PAIN. montelukast (SINGULAIR) 10 mg tablet Take 1 tablet by mouth daily at bedtime. norethindrone (AYGESTIN) 5 mg tablet Take 2 tablets by mouth once daily. Then take one a day VITAMIN B COMPLEX (B COMPLEX ORAL) Take by mouth. Ascorbic Acid (VITAMIN C) 1,000 mg tablet Take 1,000 mg by mouth once daily. vitamin e 1,000 unit capsule Take 1,000 Units by mouth once daily. niacin (NIACIN) 500 mg tablet Take 500 mg by mouth daily with breakfast. Magnesium Oxide 500 mg cap Take by mouth. albuterol (PROVENTIL) 2.5 mg /3 mL (0.083 %) nebulizer solution Use 3 mL via nebulizer three times daily as needed. OVER 5-15 MINUTES. FOR WHEEZING AND SHORTNESS OF BREATH. hydrOXYzine pamoate (VISTARIL) 25 mg capsule Take 1 capsule by mouth three times daily as needed for Anxiety. EPINEPHrine (EPIPEN) 0.3 mg/0.3 mL (1:1,000) atIn 0.3 mL as directed. FAMILY HISTORY Problem Relation Age of Onset - Diabetes Mother - Hypertension Mother - reflux [OTHER] Mother - Rheumatoid Arthritis [OTHER] Mother - Fibromyalgia [OTHER] Mother - Osteo Arthritis [OTHER] Mother - Hypertension Maternal Grandfather - LUPUS [OTHER] Maternal Grandmother - LUPUS [OTHER] Maternal Aunt - lung cancer [OTHER] Maternal Aunt - brain cancer [OTHER] Maternal Aunt Social History Substance Use Topics - Smoking status: Current Every Day Smoker Packs/day: 0.50 Years: 15.00 Types: Cigarettes Last attempt to quit: 04/15/2015 - Smokeless tobacco: Never Used - Alcohol use Yes Comment: RARELY Physical Exam Constitutional: She is well-developed, well-nourished, and in no distress. HENT: Head: Normocephalic. Right Ear: Tympanic membrane is injected and erythematous. A middle ear effusion is present. Left Ear: Tympanic membrane is injected, erythematous and bulging. A middle ear effusion is present. Nose: Sinus tenderness present. Mouth/Throat: Uvula is midline, oropharynx is clear and moist and mucous membranes are normal. No posterior oropharyngeal edema or posterior oropharyngeal erythema. Small intranasal lesion Eyes: Conjunctivae are normal. Right eye exhibits no discharge. Left eye exhibits no discharge. Neck: Neck supple. Cardiovascular: Normal rate, regular rhythm and normal heart sounds. Pulmonary/Chest: Effort normal and breath sounds normal. No tachypnea. No respiratory distress. She has no decreased breath sounds. She has no wheezes. She has no rales. Frequent harsh cough Lymphadenopathy: She has no cervical adenopathy. Neurological: She is alert. Skin: Skin is warm and dry. No rash noted. Nursing note and vitals reviewed. ASSESSMENT/PLAN: 1. Nasal sore - ICD9: 478.19, ICD10: J34.89 (primary diagnosis) - Will begin treatment with as per antibiotic ointment as written, see orders - Supportive care with plenty of fluids, rest, and analgesia prn. - MUPIROCIN 2 % TOPICAL OINTMENT 2. Acute bronchitis, unspecified organism - ICD9: 466.0, ICD10: J20.9 - AZITHROMYCIN 250 MG TABLET - PREDNISONE 20 MG TABLET 3. Acute suppurative otitis media of both ears without spontaneous rupture of tympanic membranes, recurrence not specified - ICD9: 382.00, ICD10: H66.003 - Will begin treatment with Zithromax pack as directed - Supportive care with plenty of fluids, rest, and analgesia prn. - AZITHROMYCIN 250 MG TABLET - Follow-up with your PCP in 3-5 days if symptoms have not improved or sooner if symptoms worsen - Discussed red flags and need for immediate medical evaluation if any occur. - Discussed supportive care treatment with fluids, rest and analgesia. - Discussed expected course of illness SAMIR Daigle Observed: 04/25/2017 Status: COMPLETED Source: [place] 12:00 AM [facility] REPOSITORY Letter Text Nini Amaya April 25, 2017 [address] [id number] 04/25/2017 Nini Amaya [address] [place] [id number] Dear Ms. Amaya: We have been unsuccessful in reaching you by phone to discuss the following with you: The need for an appointment for a medication follow up. Please call our office at [phone] so that we can help you schedule this appointment or you may utilize open access hours with Dr. Waters and Gil Perea. no appointment need just walk in and register in the front lobby and you will be seen same day. Open access hours are: Saturday 8 am-6 pm Saturday 8 am-4 pm Saturday 8 am-4 pm 8 am-6 pm Saturday 8 am-4 pm Sincerely, (Signed electronically to expedite mailing) Hortencia Du LPN OBSOLETE Observed: 04/25/2017 Status: COMPLETED Source: [place] 12:00 AM [facility] REPOSITORY Refill ([facility]) NINI AMAYA ([id number]) 1970 F Date Time Provider Department 04/25/17 MARIAM WATERS During your visit today, we recorded the following information about you: Priyanka Bentley Ma 04/25/2017 9:20 AM Signed Patient has been identified by name and date of : Yes Pending Prescriptions Disp Refills GABAPENTIN 300 MG CAPSULE 30 capsule Sig: TAKE 1 CAPSULE AT BEDTIME BACILIO: Yes LEVOTHYROXINE 88 MCG TABLET 30 tablet Sig: take 1 tablet daily on an empty stomach BACILIO: Yes RX INSTRUCTIONS: Patient aware RX will be sent to pharmacy. No need to notify patient. Priyanka Bentley Ma Last OV: 04/2016 Last refill: 12/2016 (gabapentin) Levlothroxine was just refilled on 04/23/2017 for 30 days. Priyanka Bentley Ma No appointment scheduled. Future orders pending. Mariam Waters MD 04/25/2017 5:02 PM Signed Needs seen Hortencia Du LPN 04/25/2017 5:15 PM Signed Attempted to call patient but message received stating not accepting calls at this time. Letter sent asking patient to come in for an appointment. Allergies As of Date: 04/25/2017 Noted Allergy Reaction ALEVE (NAPROXEN SODIUM) 11/01/2008 4 - Hives 7 - Swelling BASIL 12/21/2008 7 - Swelling BEES 01/31/2005 4 - Hives TRAZODONE 01/31/2005 14 - Other: See Comments Comments: episodes of blindness AMOXICILLIN 01/31/2005 14 - Other: See Comments Comments: yeast infection MORPHINE 11/07/2010 11 - Vomiting PERCOCET (OXYCODONE-ACETAMINOPHEN)02/01/2014 14 - Other: See Comments Comments: Headaches, strange dreams PROZAC (FLUOXETINE HCL) 01/31/2005 SEPTRA (SULFAMETHOXAZOLE-TRIMETHO*01/31/2005 4 - Hives Date Reviewed: 08/13/2016 Reviewed by: Iesha Crocker LPN - Fully Assessed Reason for Visit: Refill Request [94] Order(s):gabapentin (NEURONTIN) 300 mg capsuleTAKE 1 CAPSULE AT BEDTIMEDisp: 30 capsuleRfl: 0 levothyroxine (SYNTHROID) 88 mcg tablettake 1 tablet daily on an empty stomachDisp: 30 tabletRfl: 0 Prescriptions as of 04/25/2017 Sig: GABAPENTIN 300 MG CAPSULE TAKE 1 CAPSULE AT BEDTIME LEVOTHYROXINE 88 MCG TABLET take 1 tablet daily on an emp* CETIRIZINE 10 MG TABLET Take 1 tablet by mouth once d* AMITRIPTYLINE 10 MG TABLET Take 1 tablet by mouth at bed* MECLIZINE 25 MG TABLET TAKE 1 TABLET BY MOUTH THREE * FOLIC ACID 1 MG TABLET Take 1 tablet by mouth once d* VENTOLIN HFA 90 MCG/ACTUATION* Inhale 2 Puffs as instructed * MOMETASONE 0.1 % TOPICAL CREAM Apply thin layer twice a day * VITAMIN D2 50,000 UNIT CAPSULE Take 1 capsule by mouth twice* RANITIDINE 150 MG TABLET Take 1 tablet by mouth twice * IBUPROFEN 800 MG TABLET Take 1 tablet by mouth every * HYDROCODONE 5 MG-ACETAMINOPHE* Take 1 tablet by mouth every * DOXYCYCLINE MONOHYDRATE 100 M* Take 1 tablet by mouth twice * HYDROCODONE 5 MG-ACETAMINOPHE* Take 1 tablet by mouth every * IBUPROFEN 800 MG TABLET Take 1 tablet by mouth every * MONTELUKAST 10 MG TABLET Take 1 tablet by mouth daily * NORETHINDRONE ACETATE 5 MG TA* Take 2 tablets by mouth once * B COMPLEX ORAL Take by mouth. ASCORBIC ACID (VITAMIN C) 1,0* Take 1,000 mg by mouth once d* VITAMIN E 1,000 UNIT CAPSULE Take 1,000 Units by mouth onc* NIACIN 500 MG TABLET Take 500 mg by mouth daily wi* MAGNESIUM OXIDE 500 MG CAPSULE Take by mouth. ALBUTEROL SULFATE 2.5 MG/3 ML* Use 3 mL via nebulizer three * HYDROXYZINE PAMOATE 25 MG CAP* Take 1 capsule by mouth three* EPINEPHRINE 0.3 MG/0.3 ML INJ* 0.3 mL as directed. 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 Routine gynecological examination [Z01.419] INVALID FOR*11/30/2011 Class: Chronic Tear of medial cartilage or meniscus of knee, c*INVALID FOR*12/19/2010 Psoriatic arthritis [L40.50] INVALID FOR* Prescriptions ordered this encounter Disp Refills Start End GABAPENTIN 300 MG CAPSULE 30 c* 0 04/25/2017 05/26/2017 Cmt: Med-sync patient. If too soon, we will put new RX on hold for next cycle. Sig: TAKE 1 CAPSULE AT BEDTIME LEVOTHYROXINE 88 MCG TABLET 30 t* 0 04/25/2017 Cmt: Med-sync patient. If too soon, we will put new RX on hold for next cycle. Sig: take 1 tablet daily on an empty stomach Medications Discontinued During This Encounter gabapentin (NEURONTIN) 300 mg capsule 30 c* 3 01/01/2017 04/25/2017 Route: ORAL Sig: Take 1 capsule by mouth daily at bedtime. Disc: Reason for discontinue is not on file. levothyroxine (SYNTHROID) 88 mcg tab* 30 t* 0 04/23/2017 04/25/2017 Sig: take 1 tablet daily on an empty stomach Disc: Reason for discontinue is not on file. Encounter Status:Closed by ELSA MENDOZA MA on 05/01/17 OBSOLETE Observed: 04/22/2017 Status: COMPLETED Source: [place] 12:00 AM [facility] REPOSITORY [facility] ([id number]) 1970 F Date Time Provider Department 04/22/17 MARIAM WATERS During your visit today, we recorded the following information about you: Magaly Nelson Cma 04/23/2017 9:21 AM Signed Patient has been identified by name and date of : Yes Pending Prescriptions Disp Refills LEVOTHYROXINE 88 MCG TABLET 30 tablet Sig: take 1 tablet daily on an empty stomach BACILIO: Yes RX INSTRUCTIONS: Patient aware RX will be sent to pharmacy. No need to notify patient. Last office visit:04/18/16 Next office visit:none scheduled Magaly Waters MD 04/23/2017 4:56 PM Signed Needs follow up and labs. Lena Vega Ma 04/23/2017 5:09 PM Signed Unable to contact pt at this time, phone states ANDquot;phone is not receiving calls at this timeANDquot; please try again later. Elsa Mendoza Ma 05/01/2017 12:38 PM Signed Letter sent to patient. Elsa Mnedoza Ma Allergies As of Date: 04/22/2017 Noted Allergy Reaction ALEVE (NAPROXEN SODIUM) 11/01/2008 4 - Hives 7 - Swelling BASIL 12/21/2008 7 - Swelling BEES 01/31/2005 4 - Hives TRAZODONE 01/31/2005 14 - Other: See Comments Comments: episodes of blindness AMOXICILLIN 01/31/2005 14 - Other: See Comments Comments: yeast infection MORPHINE 11/07/2010 11 - Vomiting PERCOCET (OXYCODONE-ACETAMINOPHEN)02/01/2014 14 - Other: See Comments Comments: Headaches, strange dreams PROZAC (FLUOXETINE HCL) 01/31/2005 SEPTRA (SULFAMETHOXAZOLE-TRIMETHO*01/31/2005 4 - Hives Date Reviewed: 08/13/2016 Reviewed by: Iesha Crocker LPN - Fully Assessed Reason for Visit: Refill Request [94] Primary Visit Diagnosis:Acquired hypothyroidism [E03.9] Order(s):TSH BLD [SQTSH] Order #: [id number] FUTURE LIPID PANEL BASIC [SQLIPB] Order #: [id number] FUTURE COMP METABOLIC PANEL [SQCMP] Order #: [id number] FUTURE Prescriptions as of 04/22/2017 Sig: X LEVOTHYROXINE 88 MCG TABLET take 1 tablet daily on an emp* CETIRIZINE 10 MG TABLET Take 1 tablet by mouth once d* AMITRIPTYLINE 10 MG TABLET Take 1 tablet by mouth at bed* MECLIZINE 25 MG TABLET TAKE 1 TABLET BY MOUTH THREE * FOLIC ACID 1 MG TABLET Take 1 tablet by mouth once d* X GABAPENTIN 300 MG CAPSULE Take 1 capsule by mouth daily* VENTOLIN HFA 90 MCG/ACTUATION* Inhale 2 Puffs as instructed * MOMETASONE 0.1 % TOPICAL CREAM Apply thin layer twice a day * VITAMIN D2 50,000 UNIT CAPSULE Take 1 capsule by mouth twice* RANITIDINE 150 MG TABLET Take 1 tablet by mouth twice * IBUPROFEN 800 MG TABLET Take 1 tablet by mouth every * HYDROCODONE 5 MG-ACETAMINOPHE* Take 1 tablet by mouth every * DOXYCYCLINE MONOHYDRATE 100 M* Take 1 tablet by mouth twice * HYDROCODONE 5 MG-ACETAMINOPHE* Take 1 tablet by mouth every * IBUPROFEN 800 MG TABLET Take 1 tablet by mouth every * MONTELUKAST 10 MG TABLET Take 1 tablet by mouth daily * NORETHINDRONE ACETATE 5 MG TA* Take 2 tablets by mouth once * B COMPLEX ORAL Take by mouth. ASCORBIC ACID (VITAMIN C) 1,0* Take 1,000 mg by mouth once d* VITAMIN E 1,000 UNIT CAPSULE Take 1,000 Units by mouth onc* NIACIN 500 MG TABLET Take 500 mg by mouth daily wi* MAGNESIUM OXIDE 500 MG CAPSULE Take by mouth. ALBUTEROL SULFATE 2.5 MG/3 ML* Use 3 mL via nebulizer three * HYDROXYZINE PAMOATE 25 MG CAP* Take 1 capsule by mouth three* EPINEPHRINE 0.3 MG/0.3 ML INJ* 0.3 mL as directed. 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 Routine gynecological examination [Z01.419] INVALID FOR*11/30/2011 Class: Chronic Tear of medial cartilage or meniscus of knee, c*INVALID FOR*12/19/2010 Psoriatic arthritis [L40.50] INVALID FOR* Prescriptions ordered this encounter Disp Refills Start End LEVOTHYROXINE 88 MCG TABLET 30 t* 0 04/23/2017 04/25/2017 Sig: take 1 tablet daily on an empty stomach Medications Discontinued During This Encounter levothyroxine (SYNTHROID) 88 mcg tab* 30 t* 0 03/15/2017 04/23/2017 Cmt: Med-sync patient. If too soon, we will put new RX on hold for next cycle. Sig: take 1 tablet daily on an empty stomach Disc: Reason for discontinue is not on file. Letter Text Nini Amaya May 01, 2017 [address] [id number] 05/01/2017 [facility]# [id number] Nini Amaya [facility] [address] Dear Ms. Amaya: We have been unsuccessful in reaching you by phone. You are recommended to: Please call my office for an appointment at your earliest convenience, and get lab work done that has been ordered for you. If you have any questions, please do not hesitate in calling our office at [phone]. Thank you. Sincerely, Mariam Waters MD Encounter Status:Closed by ELSA MENDOZA MA on 05/01/17 ALLERGIES ALLERGIES DATE TYPE / CODE NAME / CODE REACTION SEVERITY SOURCE Drug naproxen Anaphylaxis SV [place] 7 Allergy/390744554( sodium/[id number] [facility]) 1(RXNORM) Hospital Repository Drug oxycodone Vomiting Unknown [facility] 7 Allergy/074795112( HCl/G603022446(R [facility]) XNORM) Hospital Repository Drug sulfamethoxazole Hives Unknown [place] 7 Allergy/509223081( /H039761994(RXNO [facility]) RM) Hospital Repository Drug trimethoprim/F00 Hives Unknown [facility] 7 Allergy/606133226( 0679485(RXNORM) [facility] Repository Drug amoxicillin/F006 Unknown Unknown [place] 7 Allergy/442373798( 885053(RXNORM) [facility]) Hospital Repository Drug trazodone/Y79303 Other Unknown [facility] 7 Allergy/659495072( 4610(RXNORM) [facility]) Hospital Repository Drug fluoxetine/F0060 Other Unknown [facility] 7 Allergy/734080403( 10669(RXNORM) [facility]) Hospital Repository Drug basil/F537791070 Anaphylaxis SV [facility] 7 Allergy/546016976( (RXNORM) [facility] Repository Miscellaneous BEE STINGS Anaphylaxis SV [place] 7 Allergy/280037562( [facility]) Hospital Repository DRUG/336546119(SNO OXYCODONE-ACETAM OTHER: SEE C [place] [address]) [facility] Repository DRUG MORPHINE Vomiting [place] 1 INGREDI/051166398( Clinic Main SNOMED [facility]) [place] Repository DRUG BASIL SWELLING [place] 9 INGREDI/604274093( Clinic Main SNOMED CT) [place] Repository DRUG NAPROXEN SODIUM HIVES [facility] 9 INGREDI/854063782( Clinic Main SNOMED CT) [place] Repository Environ/458295955( BEES HIVES [facility] [address]) Clinic Main [place] Repository DRUG TRAZODONE OTHER: SEE C [facility] 5 INGREDI/760089556( Clinic Main SNOMED CT) [place] Repository DRUG AMOXICILLIN OTHER: SEE C [place] 5 INGREDI/579679311( Clinic Main SNOMED CT) [place] Repository DRUG FLUOXETINE HCL [place] 5 INGREDI/598881748( Clinic Main SNOMED CT) [place] Repository DRUG/568765792(SNO SULFAMETHOXAZOLE [facility] [address]) -TRIMETHOPRIM Clinic Main [place] Repository ENCOUNTERS ENCOUNTERS ADMIT/DISCHARGE ACCOUNT ADMITTING ENCOUNTER LOCATION SOURCE NUMBER CLASS 03/10/2018 [id number] 02/05/2018/02/06/20 [id number] Ambulatory [address] Main [place] Repository 02/05/2018/02/08/20 [id number] Ambulatory [address] Repository 05/29/2017/05/30/19 [id number] Ambulatory [address] Main [place] Repository 05/24/2017/05/28/19 [id number] Ambulatory [address] Repository PAYERS PAYERS ENCOUNTER GUARANTOR PAYER SUBSCRIBER SOURCE 03/10/2018 NINI Lu Primary JUSTIN E [place] [id number] Insurance:ANTHEMPolic [facility]ING[facility] [place]: [id number] [id number] Repository [address]Jlj: [address] e Date:[id number] [phone] () [address], [place] [address]VX: 03/10/2018 Secondary NOT GIVENUNK Sandy Insurance:SELF PAY [facility] Number: Effective Repository Date:2018-03-10
== END ==
PROVIDERS: Family Provider Family Medicine; PCP Family Medicine; Referring Provider Internal Medicine Rheumatology; Visit Provider Internal Medicine Rheumatology
DX: L40.59 Other psoriatic arthropathy (principal); M79.7 Fibromyalgia; L40.8 Other psoriasis; E03.9 Hypothyroidism, unspecified; J45.909 Unspecified asthma, uncomplicated; K21.9 Gastro-esophageal reflux disease without esophagitis
CPT/HCPCS: 36415; 72170; 80053; 81374; 85025; 86038; 86200; 86431; 86706; 86803; 87340

== ENCOUNTER → 2018-12-05 | Outpatient (CLI) | payer BC, SELFPAY ==
[2016-07-31 15:27] VITALS: BMI 34.2
[2018-12-05 12:49] LABS: D-Dimer Quantitative (DVT/PE) 0.44 FEU/ug/m (0.27-0.49)
== END | disposition home or self-care (01) ==
LOC: LABSPEC 12:32
PROVIDERS: Family Provider Family Medicine; PCP Family Medicine; Referring Provider Family Medicine
DX: R06.02 Shortness of breath (principal); R07.9 Chest pain, unspecified
CPT/HCPCS: 85379

== ENCOUNTER → 2019-03-04 08:21 | Outpatient (CLI) | payer BC, SELFPAY ==
[2016-07-31 15:27] VITALS: BMI 34.2
[2019-03-04 09:51] LABS: Absolute Lymphocyte Count 2.75 X10^3/uL (0.83-4.51); Absolute Neutrophil Count 5.6 X10^3/uL (2.0-7.7); Basophil# 0.07 X10^3/uL; Basophil% 0.7 % (0-1); Eosinophil# 0.18 X10^3/uL; Eosinophils% 1.9 % (0-5); Hematocrit 43.7 % (37-47); Lymphocyte # 2.75 X10^3/ul (4.0); Lymphocyte % 28.8 % (19-41); Mean Corpuscular Hgb 30.6 pg (27.0-32.0); Mean Corpuscular Volume 95.6 fL (81-99); Mean Platelet Vol. 9.6 fl (6.2-12.0); Monocyte# 0.87 X10^3/uL; Monocyte% 9.1 % (0-10); NRBC Flagged by Analyzer 0 % (0-5); Neutrophil # 5.63 X10^3/uL (2.7-7.7); Neutrophil % 59.1 % (47-70); Platelet Count 363 K/mm3 (150-450); RBC Distribution Width CV 12.8 % (11.6-14.6); RBC Distribution Width SD 44.8 fl (35.1-43.9); Red Blood Count 4.57 M/mm3 (4.2-5.4); White Blood Count 9.5 K/mm3 (4.4-11.0)
[2019-03-04 10:26] LABS: AST(SGOT) 16 U/L (15-37); Alanine Aminotransfer ALT/SGPT 37 U/L (13-56); Albumin, Serum 3.7 g/dL (3.2-5.0); Alkaline Phosphatase 69 U/L (45-117); Anion Gap 7 (5-15); BUN 10 mg/dL (7-18); Calcium,Total 8.8 mg/dL (8.5-10.1); Chloride 106 mmol/L (98-107); Creatinine, Serum 0.84 mg/dL (0.55-1.02); EST Glomerular Filtration Rate 77 mL/min (>60); Est Glom Filt Rate - Afr Amer 94 mL/min (>60); Globulin 3.6 g/dL (2.2-4.2); Glucose 120 mg/dL (74-106); Potassium 3.9 mmol/L (3.5-5.1); Protein, Total 7.3 g/dL (6.4-8.2); Sodium Level 137 mmol/L (136-145)
== END ==
PROVIDERS: Family Provider Family Medicine; PCP Family Medicine; Referring Provider Internal Medicine Rheumatology; Visit Provider Internal Medicine Rheumatology
DX: L40.59 Other psoriatic arthropathy (principal); M79.7 Fibromyalgia; L40.8 Other psoriasis; E03.9 Hypothyroidism, unspecified; J45.909 Unspecified asthma, uncomplicated; K21.9 Gastro-esophageal reflux disease without esophagitis; Z79.899 Other long term (current) drug therapy
CPT/HCPCS: 36415; 80053; 85025

== ENCOUNTER → 2019-12-07 | Outpatient (CLI) | payer BC, SELFPAY ==
[2016-07-31 15:27] VITALS: BMI 34.2
[2019-12-07 15:59] LABS: Absolute Lymphocyte Count 1.62 X10^3/uL (0.83-4.51); Absolute Neutrophil Count 7.8 X10^3/uL (2.0-7.7); Basophil# 0.07 X10^3/uL; Basophil% 0.7 % (0-1); Eosinophil# 0.08 X10^3/uL; Eosinophils% 0.8 % (0-5); Hematocrit 43.9 % (37-47); Hemoglobin 13.9 g/dL (12.0-15.0); Lymphocyte # 1.62 X10^3/ul (4.0); Lymphocyte % 16.1 % (19-41); Mean Corp Hgb Conc 31.7 g/dL (32-36); Mean Corpuscular Volume 94.6 fL (81-99); Mean Platelet Vol. 9.8 fl (6.2-12.0); Monocyte# 0.47 X10^3/uL; Monocyte% 4.7 % (0-10); NRBC Flagged by Analyzer 0 % (0-5); Neutrophil # 7.79 X10^3/uL (2.7-7.7); Neutrophil % 77.2 % (47-70); Platelet Count 367 K/mm3 (150-450); RBC Distribution Width CV 13.3 % (11.6-14.6); RBC Distribution Width SD 46.2 fl (35.1-43.9); Red Blood Count 4.64 M/mm3 (4.2-5.4); White Blood Count 10.1 K/mm3 (4.4-11.0)
[2019-12-07 16:20] LABS: AST(SGOT) 18 U/L (15-37); Alanine Aminotransfer ALT/SGPT 40 U/L (13-56); Albumin, Serum 3.8 g/dL (3.2-5.0); Alkaline Phosphatase 89 U/L (45-117); Anion Gap 4 (5-15); BUN 9 mg/dL (7-18); BUN/Creat Ratio 11.5 RATIO (10-20); Calcium,Total 8.8 mg/dL (8.5-10.1); Chloride 106 mmol/L (98-107); Creatinine, Serum 0.78 mg/dL (0.55-1.02); EST Glomerular Filtration Rate 83 mL/min (>60); Est Glom Filt Rate - Afr Amer 100 mL/min (>60); Globulin 3.8 g/dL (2.2-4.2); Glucose 119 mg/dL (74-106); Potassium 3.8 mmol/L (3.5-5.1); Protein, Total 7.6 g/dL (6.4-8.2); Sodium Level 136 mmol/L (136-145)
[2019-12-10 16:08] LABS: Red Blood Cell Count Test/G6PD 4.62 x10E6/uL (3.77-5.28)
[2019-12-10 16:24] LABS: G6PD Quant Test 264 (146-376)
== END | disposition home or self-care (01) ==
LOC: MTLAB 11:56
PROVIDERS: PCP Family Medicine; Referring Provider Internal Medicine Rheumatology; Visit Provider Internal Medicine Rheumatology
DX: L40.59 Other psoriatic arthropathy (principal); M79.7 Fibromyalgia; L40.8 Other psoriasis; E03.9 Hypothyroidism, unspecified; J45.909 Unspecified asthma, uncomplicated; K21.9 Gastro-esophageal reflux disease without esophagitis; Z79.899 Other long term (current) drug therapy
CPT/HCPCS: 36415; 80053; 82955; 85025

== ENCOUNTER → 2020-02-10 | Outpatient (CLI) | payer BC, SELFPAY ==
[2016-07-31 15:27] VITALS: BMI 34.2
[2020-02-10 15:21] LABS: Absolute Lymphocyte Count 1.66 X10^3/uL (0.83-4.51); Absolute Neutrophil Count 8.7 X10^3/uL (2.0-7.7); Basophil# 0.05 X10^3/uL; Basophil% 0.4 % (0-1); Eosinophil# 0.12 X10^3/uL; Eosinophils% 1.1 % (0-5); Hematocrit 42.7 % (37-47); Hemoglobin 13.7 g/dL (12.0-15.0); Lymphocyte # 1.66 X10^3/ul (4.0); Lymphocyte % 14.9 % (19-41); Mean Corp Hgb Conc 32.1 g/dL (32-36); Mean Corpuscular Hgb 30.6 pg (27.0-32.0); Mean Corpuscular Volume 95.5 fL (81-99); Mean Platelet Vol. 10.2 fl (6.2-12.0); Monocyte# 0.56 X10^3/uL; NRBC Flagged by Analyzer 0 % (0-5); Neutrophil # 8.71 X10^3/uL (2.7-7.7); Neutrophil % 78.2 % (47-70); Platelet Count 322 K/mm3 (150-450); RBC Distribution Width CV 13.9 % (11.6-14.6); RBC Distribution Width SD 48.8 fl (35.1-43.9); Red Blood Count 4.47 M/mm3 (4.2-5.4); White Blood Count 11.2 K/mm3 (4.4-11.0)
[2020-02-10 15:49] LABS: ALB/GLOB Ratio 1.1 RATIO (0.9-2.4); AST(SGOT) 25 U/L (15-37); Alanine Aminotransfer ALT/SGPT 42 U/L (13-56); Alkaline Phosphatase 79 U/L (45-117); Anion Gap 9 (5-15); BUN 8 mg/dL (7-18); BUN/Creat Ratio 9.5 RATIO (10-20); Chloride 102 mmol/L (98-107); Creatinine, Serum 0.84 mg/dL (0.55-1.02); EST Glomerular Filtration Rate 76 mL/min (>60); Est Glom Filt Rate - Afr Amer 92 mL/min (>60); Globulin 3.6 g/dL (2.2-4.2); Glucose 127 mg/dL (74-106); Potassium 4.2 mmol/L (3.5-5.1); Protein, Total 7.6 g/dL (6.4-8.2); Sodium Level 136 mmol/L (136-145)
== END | disposition home or self-care (01) ==
LOC: MTLAB 12:52
PROVIDERS: PCP Family Medicine; Referring Provider Internal Medicine Rheumatology; Visit Provider Internal Medicine Rheumatology
DX: L40.59 Other psoriatic arthropathy (principal); M79.7 Fibromyalgia; L40.8 Other psoriasis; E03.9 Hypothyroidism, unspecified; J45.909 Unspecified asthma, uncomplicated; K21.9 Gastro-esophageal reflux disease without esophagitis; Z79.899 Other long term (current) drug therapy
CPT/HCPCS: 36415; 80053; 85025

== ENCOUNTER → 2020-02-12 | Outpatient (CLI) | payer BC, SELFPAY ==
[2016-07-31 15:27] VITALS: BMI 34.2
--- NOTE | 2020-02-12 08:58 | RAD_ITS ---
STUDY: X-RAY CHEST REASON FOR EXAM: Female, 49 years old. PSORIATIC ARTHROPATHY, HIGH RISK MEDS -- HX OF ASTHMA TECHNIQUE: PA and lateral views of the chest. COMPARISON: None. FINDINGS: The lungs are clear and expanded. There is no demonstrated pleural abnormality. Normal size heart. Normal mediastinum and [place]. Normal visualized pulmonary arteries. Normal visualized aortic arch and descending thoracic aorta. Normal visualized thoracic spine. Normal visualized ribs, clavicles, and shoulders. There is no demonstrated abnormality of the visualized soft tissue structures of the upper abdomen. RAD/Chest PA and Lateral IMPRESSION: Normal x-ray examination of the chest. Electronically Signed: Luke Davis MD at 8:38 EDT Tel , Service support ,
[2020-02-17 03:07] LABS: QNTFERON TB Mitogen Value > 10.00 IU/mL (.); QNTFERON TB Nil Value 0.28 IU/mL (.); QNTFERON TB1+ Ag Value 0.54 IU/mL (.); QNTFERON TB2+ Ag Value 0.46 IU/mL (.)
[2020-02-17 09:18] LABS: QNTIFERON TB Positive Criteria Negative (Negative)
== END | disposition home or self-care (01) ==
LOC: MTLAB 08:49
PROVIDERS: PCP Family Medicine; Referring Provider Internal Medicine Rheumatology; Visit Provider Internal Medicine Rheumatology
DX: L40.59 Other psoriatic arthropathy (principal); M79.7 Fibromyalgia; L40.8 Other psoriasis; E03.9 Hypothyroidism, unspecified; J45.909 Unspecified asthma, uncomplicated; K21.9 Gastro-esophageal reflux disease without esophagitis; Z79.899 Other long term (current) drug therapy
CPT/HCPCS: 36415; 71046; 86480

== ENCOUNTER → 2021-01-16 14:44 | Outpatient (CLI) | payer BC, SELFPAY ==
[2021-01-16 17:51] LABS: Absolute Lymphocyte Count 2.92 X10^3/uL (0.83-4.51); Absolute Neutrophil Count 6.1 X10^3/uL (2.0-7.7); Basophil# 0.06 X10^3/uL; Basophil% 0.6 % (0-1); Eosinophil# 0.25 X10^3/uL; Eosinophils% 2.4 % (0-5); Hematocrit 46.2 % (37-47); Hemoglobin 14.9 g/dL (12.0-15.0); Lymphocyte # 2.92 X10^3/ul (0.83-4.51); Lymphocyte % 28.4 % (19-41); Mean Corp Hgb Conc 32.3 g/dL (32-36); Mean Corpuscular Hgb 31.4 pg (27.0-32.0); Mean Corpuscular Volume 97.5 fL (81-99); Mean Platelet Vol. 10.4 fl (6.2-12.0); Monocyte# 0.92 X10^3/uL; Monocyte% 8.9 % (0-10); NRBC Flagged by Analyzer 0 % (0-5); Neutrophil # 6.11 X10^3/uL (2.7-7.7); Neutrophil % 59.5 % (47-70); Platelet Count 377 K/mm3 (150-450); RBC Distribution Width CV 12.9 % (11.6-14.6); RBC Distribution Width SD 46.1 fl (35.1-43.9); Red Blood Count 4.74 M/mm3 (4.2-5.4); White Blood Count 10.3 K/mm3 (4.4-11.0)
[2021-01-16 18:35] LABS: ALB/GLOB Ratio 0.9 RATIO (0.9-2.4); AST(SGOT) 34 U/L (15-37); Alanine Aminotransfer ALT/SGPT 54 U/L (13-56); Albumin, Serum 3.6 g/dL (3.2-5.0); Alkaline Phosphatase 95 U/L (45-117); Anion Gap 6 (5-15); BUN 12 mg/dL (7-18); BUN/Creat Ratio 13.1 RATIO (10-20); Calcium,Total 8.7 mg/dL (8.5-10.1); Chloride 103 mmol/L (98-107); Creatinine, Serum 0.92 mg/dL (0.55-1.02); EST Glomerular Filtration Rate 69 mL/min (>60); Est Glom Filt Rate - Afr Amer 84 mL/min (>60); Glucose 126 mg/dL (74-106); Potassium 3.6 mmol/L (3.5-5.1); Protein, Total 7.6 g/dL (6.4-8.2); Sodium Level 139 mmol/L (136-145)
== END ==
PROVIDERS: PCP Family Medicine; Referring Provider Internal Medicine Rheumatology; Visit Provider Internal Medicine Rheumatology
DX: L40.59 Other psoriatic arthropathy (principal); Z79.899 Other long term (current) drug therapy; M79.7 Fibromyalgia; L40.8 Other psoriasis; E03.9 Hypothyroidism, unspecified; J45.909 Unspecified asthma, uncomplicated; K21.9 Gastro-esophageal reflux disease without esophagitis
CPT/HCPCS: 36415; 80053; 85025

== ENCOUNTER → 2022-01-19 | Outpatient (CLI) | payer BC, SELFPAY ==
--- NOTE | 2022-01-19 12:24 | STRESSREP ---
Stress Test Report Date: 01/19/2022 Procedure: Pharmacologic stress nuclear imaging study Indications: Chest pain Consent: Per the patient Procedure: The patient underwent pharmacologic (Regadenoson 0.4mg ) evaluation with a peak heart rate of 120 beats per minute (7%predicted maximal heart rate) and a peak blood pressure of 130/70 mmHg. The baseline ECG demonstrated normal sinus. The peak pharmacologic ECG demonstrated no ischemic change. No cardiac dysrhythmias were noted during Lexiscan infusion and in recovery. No complaints of chest discomfort during pharmacological infusion or recovery. The patient was injected with 15 point millicuries of technetium 99m Cardiolite and subsequently rest SPECT Cardiolite nuclear imaging was obtained in the horizontal long, vertical long, and short axis views. The patient underwent pharmacologic (Regadenoson) evaluation. The patient was injected with 43.0 millicuries of technetium 99m Cardiolite and subsequently stress SPECT Cardiolite nuclear imaging was obtained in the horizontal long, vertical long, and short axis views. A gated Cardiolite study at peak stress was obtained. The examination was stopped secondary to completion of protocol. Rest and stress SPECT Cardiolite nuclear imaging status post realignment, normalization, and attenuation correction demonstrate a small defect of mild intensity in the apex and inferior apical wall. The reported LVEF is 70%. Impression: 1. Pharmacologic (Regadenoson) evaluation 2. Peak pharmacologic ECG with no ischemic changes. 3. No cardiac dysrhythmias noted. 5. Small reversible defect of the inferior apex and apical wall concerning for mild ischemia. 6. The gated Cardiolite study reports an LVEF of 70%. This note was generated with Tissue Regenixation software. It may contain incorrect words, spelling, and punctuation that were not noted in checking the note before signing.
== END | disposition home or self-care (01) ==
LOC: CVS 05:49
PROVIDERS: PCP Family Medicine; Visit Provider Family Medicine
DX: R07.89 Other chest pain (principal); R06.02 Shortness of breath
CPT/HCPCS: 78452; 93017; A9500; A4216; J2785

== ENCOUNTER → 2022-12-31 | Outpatient (CLI) | payer BC, SELFPAY ==
[2022-12-31 15:21] LABS: Absolute Lymphocyte Count 2.95 X10^3/uL (0.83-4.51); Absolute Neutrophil Count 4.6 X10^3/uL (2.0-7.7); Basophil# 0.06 X10^3/uL; Basophil% 0.7 % (0-1); Eosinophil# 0.14 X10^3/uL; Eosinophils% 1.7 % (0-5); Hematocrit 47.7 % (37-47); Hemoglobin 14.9 g/dL (12.0-15.0); Lymphocyte # 2.95 X10^3/ul (0.83-4.51); Lymphocyte % 35.3 % (19-41); Mean Corp Hgb Conc 31.2 g/dL (32-36); Mean Corpuscular Hgb 29.9 pg (27.0-32.0); Mean Corpuscular Volume 95.6 fL (81-99); Mean Platelet Vol. 9.7 fl (6.2-12.0); Monocyte% 7.2 % (0-10); NRBC Flagged by Analyzer 0 % (0-5); Neutrophil # 4.59 X10^3/uL (2.7-7.7); Neutrophil % 54.9 % (47-70); Platelet Count 327 K/mm3 (150-450); RBC Distribution Width CV 13.3 % (11.6-14.6); RBC Distribution Width SD 47.5 fl (35.1-43.9); Red Blood Count 4.99 M/mm3 (4.2-5.4); White Blood Count 8.4 K/mm3 (4.4-11.0)
[2022-12-31 15:47] LABS: ALB/GLOB Ratio 0.9 RATIO (0.9-2.4); AST(SGOT) 36 U/L (15-37); Alanine Aminotransfer ALT/SGPT 65 U/L (13-56); Albumin, Serum 3.7 g/dL (3.2-5.0); Alkaline Phosphatase 108 U/L (45-117); Anion Gap 8 (5-15); BUN 11 mg/dL (7-18); BUN/Creat Ratio 14.3 RATIO (10-20); CRP 8.34 mg/L (0.0-3.0); Calcium,Total 9.2 mg/dL (8.5-10.1); Chloride 101 mmol/L (98-107); Creatinine, Serum 0.77 mg/dL (0.55-1.02); EST Glomerular Filtration Rate 84 mL/min (>60); Est Glom Filt Rate - Afr Amer 102 mL/min (>60); Globulin 4.1 g/dL (2.2-4.2); Glucose 101 mg/dL (74-106); Potassium 3.9 mmol/L (3.5-5.1); Protein, Total 7.8 g/dL (6.4-8.2); Rheumatoid Factor < 10.0 IU/mL (<15); Sodium Level 138 mmol/L (136-145)
[2022-12-31 16:17] LABS: Erythrocyte Sedimentation Rate 34 mm/hr (0-30)
[2022-12-31 17:14] LABS: Hepatitis B Surface Antibody Non-Reactive; Hepatitis B Surface Antigen Non-Reactive (Nonreactive); Hepatitis C Antibody Non-Reactive (Nonreactive)
[2023-01-02 12:09] LABS: CCP IgG Antibodies 16 units (0-19); QNTFERON TB Mitogen Value > 10.00 IU/mL (.); QNTFERON TB Nil Value 0.12 IU/mL (.); QNTFERON TB1+ Ag Value 0.31 IU/mL (.); QNTFERON TB2+ Ag Value 0.22 IU/mL (.); QNTIFERON TB Positive Criteria Negative (Negative)
== END | disposition home or self-care (01) ==
PROVIDERS: PCP Registered Nurse; Referring Provider Internal Medicine Rheumatology; Visit Provider Internal Medicine Rheumatology
DX: L40.59 Other psoriatic arthropathy (principal); I27.20 Pulmonary hypertension, unspecified; E11.9 Type 2 diabetes mellitus without complications; E03.9 Hypothyroidism, unspecified; K76.0 Fatty (change of) liver, not elsewhere classified; Z79.899 Other long term (current) drug therapy
CPT/HCPCS: 36415; 80053; 85025; 85652; 86140; 86200; 86431; 86480; 86706; 86803; 87340

== ENCOUNTER → 2023-07-15 | Outpatient (CLI) | payer BC, SELFPAY ==
--- NOTE | 2023-07-15 07:30 | CT_ITS ---
INDICATION: RUQ PAIN AFTER CHOLECYSTECTOMY POSSIBLE HERNIA EXAMINATION: CT ABDOMEN WITH IV CONTRAST CT Abdomen W/ Contrast Injection TECHNIQUE: Helically acquired images were obtained of the abdomen following IV contrast. A radiation dose optimization technique was used for this scan. IV Contrast dosage and agent: 100 cc of Isovue-300 Oral contrast: None. RADIATION DOSAGE (If Supplied By Facility): CTDIvol = ( 17.07 ) mGy, DLP = ( 844.35 ) mGycm COMPARISON: No relevant prior comparison study available FINDINGS: LOWER CHEST: Lung bases are clear. No cardiomegaly or pericardial effusion. LIVER: Homogeneous. Mild hepatic steatosis. No focal lesion is seen. GALLBLADDER AND BILIARY TREE: Absent gallbladder consistent with previous cholecystectomy. No intra- or extrahepatic biliary ductal dilation. PANCREAS: No focal cystic or solid mass. SPLEEN: Normal size without focal cystic or solid mass. ADRENAL GLANDS: No nodules. KIDNEYS AND URETERS: Normal renal size and position. No hydronephrosis. PERITONEUM: No ascites or free air. No other fluid collection. BOWEL: No evidence of acute appendicitis. No stomach or bowel distension. No focal inflammatory change. LYMPH NODES: No enlarged mesenteric or retroperitoneal lymph nodes. VESSELS: Atherosclerotic calcifications of the abdominal aorta without evidence of aneurysm. ABDOMINAL WALL: No discrete abdominal wall hernia. BONES: No lytic or blastic abnormality. Degenerative changes at the level of L5-S1. CT/Abdomen WITH IV Contrast IMPRESSION: 1. Status post cholecystectomy. 2. No focal acute inflammatory process. 3. Mild hepatic steatosis. Electronically Signed: Zhou Galeas MD at 10:12 EDT ,
[2023-07-15 07:53] LABS: CREATININE FINGERSTICK < 1.0 mg/dL (0.55-1.02); EGFR FINGERSTICK > 60.0000 mL/min (>60)
== END | disposition home or self-care (01) ==
PROVIDERS: PCP Family Medicine; Referring Provider Family Medicine; Visit Provider Family Medicine
DX: R10.11 Right upper quadrant pain (principal); Z90.49 Acquired absence of other specified parts of digestive tract
CPT/HCPCS: 74160; Q9967

== ENCOUNTER → 2024-08-07 | Outpatient (CLI) | payer BC, SELFPAY ==
--- NOTE | 2024-08-07 13:06 | MRI_ITS ---
PROCEDURE: SPINE LUMBAR (ROUTINE) 08/07/2024 REASON FOR EXAM: SPONDYLOSIS WITH MYELOPATHY, LUMBAR REGION TECHNIQUE: Multiplanar and multisequence images were obtained without IV contrast administration. FINDINGS: Vertebrae: No acute fracture. Alignment: Anatomic alignment. Conus Medullaris: T12/L1 L1-2: Unremarkable L2-3: Unremarkable L3-4: Mild broad disc protrusion with a moderate-sized central disc protrusion produces moderate spinal stenosis and mild bilateral neural foraminal stenosis. L4-5: Moderate broad disc protrusion asymmetric to the right produces moderate spinal stenosis, moderate right neural foraminal stenosis with abutment of the right L4 nerve root laterally and mild left neural foraminal stenosis. L5-S1: Mild broad disc protrusion produces mild spinal stenosis and moderate bilateral neural foraminal stenosis. Associated Modic type 2 endplate changes. Sacrum: Unremarkable. Severe friction related edema of the posterior subcutaneous fat. MRI/Spine Lumbar (Routine) IMPRESSION: Degenerative disc disease as described above. Reading Location: [id number]
== END | disposition home or self-care (01) ==
PROVIDERS: PCP Family Medicine; Referring Provider Anesthesiology Pain Medicine; Visit Provider Anesthesiology Pain Medicine
DX: M47.16 Other spondylosis with myelopathy, lumbar region (principal)
CPT/HCPCS: 72148

== ENCOUNTER → 2024-10-27 | Outpatient (CLI) | payer BC, SELFPAY ==
[2024-10-27 11:23] LABS: Barbiturate Urine NEGATIVE (< 200 ng/mL); Benzodiazepine Urine PRESUMPTIVE POSITIVE (< 200 ng/mL); PCP Urine NEGATIVE (< 25 ng/mL); THC Urine NEGATIVE (< 50 ng/mL)
== END | disposition home or self-care (01) ==
LOC: LAB 10:33
PROVIDERS: PCP Family Medicine; Referring Provider Anesthesiology Pain Medicine; Visit Provider Anesthesiology Pain Medicine
DX: F11.20 Opioid dependence, uncomplicated (principal)
CPT/HCPCS: 80307

== ENCOUNTER → 2024-12-03 | Outpatient (CLI) | payer BC, SELFPAY ==
[2024-12-03 12:35] LABS: Hematocrit 45.0 % (37-47); Hemoglobin 14.8 g/dL (12.0-15.0); Immature Granulocytes Count 0.010 X10^3/uL (0.0-0.0); Mean Corp Hgb Conc 32.9 g/dL (32-36); Mean Corpuscular Volume 94.3 fL (81-99); Mean Platelet Vol. 10.0 fl (6.2-12.0); NRBC Flagged by Analyzer 0 % (0-5); POSITIVE MORPHOLOGY YES; Platelet Count 326 K/mm3 (150-450); RBC Distribution Width CV 12.2 % (11.6-14.6); RBC Distribution Width SD 42.4 fl (35.1-43.9); Red Blood Count 4.77 M/mm3 (4.2-5.4); White Blood Count 6.6 K/mm3 (4.4-11.0)
[2024-12-03 12:40] LABS: Differential Indicated SCAN CRITERIA MET
[2024-12-03 13:21] LABS: Creatinine, Urine (random) 71.70 mg/dL (28.00-217.00); Microalbumin,Random Urine < 12.0 mg/L (<20 mg/L)
[2024-12-03 13:42] LABS: AST(SGOT) 25 U/L (<=31); Alanine Aminotransfer ALT/SGPT 34 U/L (<=34); Albumin, Serum 4.3 g/dL (3.5-5.0); Alkaline Phosphatase 105 U/L (35-104); Anion Gap 14 (5-15); BUN 8 mg/dL (4-19); BUN/Creat Ratio 13.9 RATIO (10-20); Calcium,Total 9.5 mg/dL (7.6-11.0); Carbon Dioxide 23.1 mmol/L (21.0-32.0); Chloride 102 mmol/L (98-108); Globulin 3.0 g/dL (2.2-4.2); Glucose 156 mg/dL (70-99); Potassium 4.0 mmol/L (3.3-5.1)
== END | disposition home or self-care (01) ==
LOC: BFHLAB 10:09
PROVIDERS: PCP Family Medicine; Visit Provider Family Medicine
DX: E11.65 Type 2 diabetes mellitus with hyperglycemia (principal); E03.9 Hypothyroidism, unspecified
CPT/HCPCS: 36415; 80053; 82043; 82570; 84443; 85025